=== PATIENT | male | born 1940 | race Caucasian/White ===

== ENCOUNTER 2021-12-24 15:46 | Observation (INO) | payer OTHER ==
--- OUTSIDE RECORDS SUMMARY | 2021-12-24 15:57 | XMS REPORT | Continuity of Care Document ---
:1940 Author Organization [facility] t Address [address] [place] [address] Care Team Providers Name Role Phone Rocio PANTOJA, Jerzy. Primary Care Physician Clint Attending Clinician Unavailable Annette Attending Clinician [phone] KJ Attending Clinician Unavailable LILY Attending Clinician Unavailable Donnie Attending Clinician Unavailable Jono ORTIZ Attending Clinician Unavailable Brad PANTOJA, T. Attending Clinician Gaurav PANTOJA Attending Clinician Jason Tomlinson Attending Clinician Napoleon PANTOJA Attending Clinician Elizabeth Quezada MD Attending Clinician Sheldon Palomo MD Attending Clinician Lennie Smith MD Attending Clinician Clint Admitting Clinician Unavailable Donnie Admitting Clinician Unavailable GAURAV Admitting Clinician Unavailable Payers Payer Name Policy Type Policy Number Effective Date Expiration Date [facility] [id number] (MEDICARE REPLACEMENT/ADVAN TAGE - PPO) [employer] [id number] 2016 ADVANTAGE 00:00:00 PLAN-PPO [facility] [id number] 2016 2017 ADVANTAGE 00:00:00 00:00:00 HMO-POS-[facility] MEDICARE PART A [id number] 2014 2017 \T\ B - MEDICARE 00:00:00 00:00:00 UHC MEDICAREUHC [id number] 2020 [employer] MEDICARE 00:00:00 [facility] [id number] 021-[id number] Problems Condition Condition Condition Status Onset Resolution Last Treating Co mments Source Name Details Category Date Date Treatment Clinician Date Rectal Rectal Disease Active [facility] bleeding bleeding 11-14 00:00: Hospita 00 l Posterior Posterior Disease Active [place] [facility] vitreous vitreous 1-15 [facility] detachment detachment 00:00: of of left of left 00 Medicin eye eye e History of History of Disease Active [facility] vitrectomy vitrectomy 03-25 Co llege 00:00: of 00 Medicin e Eyelid Eyelid Disease Active [facility] cyst cyst 6 College 00:00: of 00 Medicin e Eyelid Eyelid Disease Active [facility] skin and skin and 03-25 Colleg e periocular periocular 00:00: of area area 00 Medicin laceration laceration e Pseudophak Pseudophak Disease Active [facility] ia 6 College 00:00: of 00 Medicin e Eyelid Eyelid Disease Active [facility] laceration laceration 03-17 Co llege , right , right 00:00: of 00 Medicin e Vitreous Vitreous Disease Active [facility] syneresis syneresis 02-12 Chloe ege 00:00: of 00 Medicin e Back pain Back pain Disease Active [place] j[facility] 18 College 00:00: of 00 Medicin e Diverticul Diverticul Disease Active [facility] itis itis 18 College 00:00: of 00 Medicin e Gastric Gastric Disease Active Overview: [facility] or bleed bleed 01-30 Colon College 00:00: resection of 00 Medicin e Skin Skin Disease Active Overview: [facility] 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 em[facility] emia 01-30 Level [place] 00:00: of 00 Medicin e Sleep Sleep Disease Active [facility] behavior behavior 01-30 Colleg e disorder, disorder, 00:00: of REM REM 00 Medicin e HTN HTN Disease Active [facility] (hypertens (hypertens 01-30 Co llege ion) ion) 00:00: of 00 Medicin e Eyelid Eyelid Disease Active [facility] lesion lesion 01-29 Level Green 00:00: of 00 Medicin e Allergies, Adverse Reactions, Alerts Allergy Allergy Status Severity Reaction(s) Onset Inactive Treating Comm ents Source Name Type Date Date Clinician Iodinate Propensi Active Other (See Pt gets M ethodi d ty to Comments) 11-14 hot, st Contrast adverse 00:00: flushed. Hospi ta Media reaction 00 Has had l s to previous drug contrast studies without premedica tions. Not considere d a true contrast allergy Niacin Propensi Active Unknown Does not Metho di ty to Reaction 11-[address] adverse 00:00: Hospita reaction 00 l s to drug Amlodipi Propensi Active Unknown Does not Met hodi ne ty to Reaction 11-[address] adverse 00:00: Hospita reaction 00 l s to drug Penicill Propensi Active Unknown Itching,h Me thodi ins ty to Reaction 11-[address] adverse 00:00: over Hospita reaction 00 l s to drug Trandola Propensi Active Unknown Heart Metho di pril-Lindsey ty to Reaction 11-[address] apamil adverse 00:00: faster Hospita reaction 00 l s to drug Metoprol Propensi Active Unknown Heart Metho di ol ty to Reaction 11-[address] Succinat adverse 00:00: faster Hospita e reaction 00 l s to drug Metoprol Propensi Active Rash [facility] reaction 00 Center s Morphine Propensi Active Hives 2016-[address] [facility] ty to 10-21 [facility] - adverse 00:00: Medical reaction 00 Center s Esomepra Propensi Active 2016-[address] [facility] zole ty to 10-21 [facility] Magnesiu adverse 00:00: Medical m reaction 00 Center s Niacin Propensi Active 2016-[address] [facility] [address] Preparat ty to 10-21 [facility] - ions adverse 00:00: Medical reaction 00 Center s Amlodipi Propensi Active 2016-[address] [facility] ne ty to 10-21 [facility] - adverse 00:00: Medical reaction 00 Center s Oxybutyn Propensi Active 2016-[address] [facility] in ty to 10-21 [facility] - adverse 00:00: Medical reaction 00 Center s Amiodaro Propensi Active 2016-[address] [facility] [address] ne ty to 10-21 [facility] - adverse 00:00: Medical reaction 00 Center s Penicill Propensi Active Rash 2016-[address] [facility] ins ty to 10-21 [facility] - adverse 00:00: Medical reaction 00 Center s Nisoldip Propensi Active 2016-[address] ine ty to 10-21 [facility] - adverse 00:00: Medical reaction 00 Center s Sulfa Propensi Active 2016-[address] [facility] (Sulfona ty to 10-21 [facility] - mide adverse 00:00: Medical Antibiot reaction 00 Center ics) s Trandola Propensi Active 2016-[address] [facility] pril-Lindsey ty to 10-21 [facility] - apamil adverse 00:00: Medical reaction 00 Center s Terbinaf Propensi Active 2016-[address] [facility] ine ty to 10-21 [facility] - adverse 00:00: Medical reaction 00 Center s Topirama Propensi Active 2016-[address] [facility] te ty to 10-21 [facility] - adverse 00:00: Medical reaction 00 Center s Rosuvast Propensi Active 2016-[address] [facility] [address] atin ty to 10-21 [facility] - adverse 00:00: Medical reaction 00 Center s Dexlanso Propensi Active 2016-[address] [facility] prazole ty to 10-21 [facility] - adverse 00:00: Medical reaction 00 Center s Valsarta Propensi Active 2016-[address] [facility] [address] n ty to 10-21 [facility] - adverse 00:00: Medical reaction 00 Center s Isosorbi Propensi Active 2016-[address] [facility] [address] de ty to 10-21 [facility] Mononitr adverse 00:00: Medical ate reaction 00 Center s Iodinate Propensi Active Anaphylaxis 2016-[address] d ty to 10-21 [facility] - Contrast adverse 00:00: Medical Media reaction 00 Center s Atorvast Propensi Active 2016-[address] [facility] atin ty to 10-21 [facility] - adverse 00:00: Medical reaction 00 Center s Lisinopr Propensi Active 2016-[address] il ty to 10-21 [facility] - adverse 00:00: Medical reaction 00 Center s Niacin Propensi Active 2016-10 [facility] And ty to 10-21 Level [place] Related adverse 00:00: of reaction 00 Medicin s to e drug Nisoldip Propensi Active 2016-10 [facility] ine ty to 10-21 Level [place] adverse 00:00: of reaction 00 Medicin s to e drug Oxybutyn Propensi Active 2016-10 [facility] in ty to 10-21 Level [place] Chloride adverse 00:00: of reaction 00 Medicin s to e drug Rosuvast Propensi Active 2016-10 [facility] atin ty to 10-21 Level [place] adverse 00:00: of reaction 00 Medicin s to e drug Sulfa Propensi Active 2016-10 [facility] Antibiot ty to 10-21 Level Green ics adverse 00:00: of reaction 00 Medicin s to e drug Terbinaf Propensi Active 2016-10 [facility] ine ty to 10-21 Level [place] adverse 00:00: of reaction 00 Medicin s to e drug Amiodaro Propensi Active 2016-10 [facility] ne ty to 10-21 Level Green adverse 00:00: of reaction 00 Medicin s to e drug Topirama Propensi Active 2016-10 [facility] te ty to 10-21 Level [place] adverse 00:00: of reaction 00 Medicin s to e drug Trandola Propensi Active 2016-10 [facility] pril-Lindsey ty to 10-21 Level [place] apamil adverse 00:00: of Hcl reaction 00 Medicin s to e drug Valsarta Propensi Active 2016-10 [facility] n ty to 10-21 Level [place] adverse 00:00: of reaction 00 Medicin s to e drug Atorvast Propensi Active 2016-10 [facility] atin ty to 10-21 Level [place] adverse 00:00: of reaction 00 Medicin s to e drug Dexlanso Propensi Active 2016-10 [facility] prazole ty to 10-21 College adverse 00:00: of reaction 00 Medicin s to e drug Esomepra Propensi Active 2016-10 [facility] zole ty to 10-21 Level [place] Magnesiu adverse 00:00: of m reaction 00 Medicin s to e drug Lisinopr Propensi Active 2016-10 [facility] il ty to 10-21 Level [place] adverse 00:00: of reaction 00 Medicin s to e drug Moxiflox Propensi Active Palpitations [facility] ty to 05-31 [facility] - adverse 00:00: Medical reaction 00 Center s Moxiflox Propensi Active Palpitations [facility] acin Hcl ty to 05-31 Level [place] In Nacl adverse 00:00: of reaction 00 Medicin s to e drug Amlodipi Propensi Active [facility] ty to 01-29 [facility] - Besylate adverse 00:00: Medical reaction 00 Center s Morphine Propensi Active [facility] Sulfate ty to 01-29 Level [place] adverse 00:00: of reaction Medicin s to e drug Amlodipi Propensi Active [facility] ne ty to 01-29 Level [place] Besylate adverse 00:00: of reaction 00 Medicin s to e drug Pacerone Propensi Active [facility] ty to [address] [place] [address] adverse 00:00: of reaction 00 Medicin s to e drug Penicill Propensi Active [facility] ins ty to 01-29 Level [place] adverse 00:00: of reaction 00 Medicin s to e drug I.V. Dye Propensi Active [facility] ty to [address] [place] [address] adverse 00:00: of reaction 00 Medicin s to e substanc e Isosorbi Propensi Active [facility] de ty to 01-29 Level [place] Mononitr adverse 00:00: of ate reaction 00 Medicin s to e drug Family History Family Member Diagnosis Comments Start Date Stop Date Source Natural brother [facility] Natural father Heart disease [facility] mother [facility] sister [facility] Social History Social Habit Start Date Stop Date Quantity Comments Source Alcohol intake [facility] [employer] Sex Assigned At [facility] [employer] [facility] [employer] Exposure to Not sure [facility] SARS-CoV-2 (event) Hospit al Cigarettes smoked 2020-11-18 2020-11-18 [facility] current (pack per 00:00:00 00:00:00 Hospita l day) - Reported Cigarette 2020-11-18 2020-11-18 [facility] pack-years 00:00:00 00:00:00 Hospital History SDOH 2020-11-15 2020-11-15 3 [facility] Alcohol Frequency 00:00:00 00:00:00 Hospita l History SDOH 2020-11-15 2020-11-15 1 [facility] Alcohol Std Drinks 00:00:00 00:00:00 Hospit al History SDOH 2020-11-15 2020-11-15 1 [facility] Alcohol Binge 00:00:00 00:00:00 Hospital Alcohol Comment 2020-11-14 2020-11-14 20 years [facility] 00:00:00 00:00:00 Hospital Tobacco use and 2018-04-05 2018-04-[address] [facility] k[facility] - exposure 00:00:00 00:00:00 [facility] Center History of tobacco 1980-10-15 Current smoker [facility] of use 00:00:00 Medicine Smoking Status Start Date Stop Date Source Former smoker 2019-08-08 00:00:00 2019-08-08 00:00:00 [facility] Medications Ordered Filled Start Stop Current Ordering Indication Dosage Frequency Signature Comments Components Source Medication Medication Date Date Medication? Clinician (SIG) Name Name ISOSORBIDE No 60mg QD Take 60 mg [facility] MONONITRATE 11-[address] ORAL 15:55: 00:00 nightly. Hospita 12 :00 l clopidogreL No 75mg QD Take 75 mg [facility] (PLAVIX) 75 11-19-[address] mg tablet 15:55: 00:00 daily. Hospi ta 12 :00 l omega-3s/dh 2020- No 2{capsu QD Take 2 [facility] a/epa/fish 2-11-19 le} capsules st oil (OMEGA 15:55: 00:00 by mouth Ho spita 3 ORAL) 12 :00 daily. l MAGNESIUM 2020- No 500mg QD Take 500 Me thodi ORAL 2-[address] 15:55: 00:00 mouth Hospita 12 :00 daily. l coenzyme 2020- No 100mg QD Take 100 Met hodi Q10 100 mg 2-05 02-[address] capsule 15:55: 00:00 mouth Hospita 12 :00 nightly. l clonAZEPAM 2020-0 Yes .5mg QD Take 0.5 Met hodi (KlonoPIN) 2-[address] 0.5 MG 15:55: mouth Hospita tablet 09 nightly. l ISOSORBIDE 2020-0 Yes 30mg QD Take 30 mg M ethodi MONONITRATE 2-[address] ORAL 15:55: daily. Hospita 09 l ranolazine 2020-0 Yes 500mg Q.5D Take 500 Me thodi (RANEXA) 2-[address] 500 MG 12 15:55: mouth 2 Hospi ta hr ER 09 (two) l tablet times a day. furosemide 2020-0 Yes 40mg Q.[id number] Take 40 mg [facility] (LASIX) 40 2-05 [id number] mouth [address] mg tablet 15:55: 3W (three) Hospi ta 09 times a l week. Mon, Wed, Fri fenofibrate 2020-0 Yes 145mg QD Take 145 M ethodi (TRICOR) 2-[address] 145 MG 15:55: mouth Hospita tablet 09 daily. l therapeutic 2020-0 Yes 1{tbl} QD Take 1 Me thodi multivitami 2-[address] n 15:55: mouth Hospita (THERAGRAN) 09 daily. l tablet cholecalcif 2020-0 Yes QD Take by Met hodi stacia, 2-[address] vitamin D3, 15:55: daily. Hosp braden (VITAMIN D3 09 l ORAL) ZINC ORAL 2020-0 Yes 50mg QD Take 50 mg Me thodi 2-[address] 15:55: daily. Hospita 09 l pantoprazol 2020-0 Yes 40mg QD Take 40 mg Methodi e 2-[address] (PROTONIX) 15:55: nightly. Hos farhat 40 MG EC 09 l tablet tamsulosin 2020-0 Yes .4mg QD Take 0.4 Met hodi (FLOMAX) 2-[address] 0.4 mg 15:55: mouth Hospita capsule 09 nightly. l finasteride 2020-0 Yes 5mg QD Take 5 mg M ethodi (PROSCAR) 5 2-[address] mg tablet 15:55: nightly. Hosp braden 09 l sucralfate 2020- No 1g Q.25D Take 10 mL [facility] (CARAFATE) 205 03-08 ([address] 100 mg/mL 00:00: 05:59 total) by Ho spita suspension 00 :00 mouth 4 l (four) times a day before meals and nightly for 30 days. elvitegravi 2020- No 1{tbl} QD Take 1 M ethodi r-cobicista 211-[address] t-emtricita 02:19: 00:00 mouth Hosp braden bine-tenofo 41 :00 daily. l vir DF (STRIBILD) 150-150-200 -300 mg per tablet furosemide Yes 40mg Q.5D Take [address] (LASIX) 40 6-22 by mouth 2 Charanjit es - MG tablet 12:38: (two) Medical 30 times Center daily. clopidogrel Yes 75mg QD Take [address] [facility] (PLAVIX) 75 6-22 by mouth Luke s - mg tablet 12:38: daily. Medica l 30 Center RANOLAZINE Yes Take by [facility] (RANEXA 6-22 mouth. [facility] - ORAL) 12:38: Medical 30 Center clonazePAM Yes .5mg Take 0.[address] [facility] (KLONOPIN) 6-22 mg by [facility] - 0.5 MG 12:38: mouth 2 Medical tablet 30 (two) Center times daily as needed for Anxiety. coenzyme 2017-0 Yes 100mg QD Take [address] [facility] Q10 100 mg 6-22 mg by [facility] - capsule 12:38: mouth Medical 30 daily. Center isosorbide 0 Yes 60mg QD Take [address] mononitrate 6-22 by mouth Luke s - (IMDUR) 60 12:38: daily. Medic al MG 24 hr 30 Center tablet ramipril 0 Yes 10mg QD Take [address] [facility] (ALTACE) 10 6-22 by mouth Luke s - MG capsule 12:38: daily. Medic al 30 Center pantoprazol 0 Yes 40mg QD Take [address] [facility] e 6-22 by mouth [facility] - (PROTONIX) 12:38: daily. Medic al 40 MG 30 Center tablet triamcinolo 0 Yes Q.[id number] Apply [facility] ne 04-05 [id number] topically Luke s - (KENALOG) 12:38: 3D 3 (three) Med ical 0.5 % cream 30 times Center daily. diflupredna Yes Apply to [facility] te -22 eye(s). [facility] - (DUREZOL) 12:38: Medical 0.05 % Drop 30 Center bromfenac Yes Apply to [facility] (PROLENSA) -22 eye(s). [facility] - 0.07 % Drop 12:38: Medica l 30 Center polymyxin B Yes 1[drp] [address] sulf-trimet 04-05 [facility] - hoprim 12:38: Medical (POLYTRIM) 30 Center 10,000 unit- 1 mg/mL Drop nitroglycer Yes 1{spray Place [address] [facility] in 04-05 } spray [facility] - (NITROLINGU 12:38: under the M edical AL) 400 30 tongue Center mcg/spray every 5 spray (five) minutes as needed for Chest pain. multivit-mi Yes Take by [facility] n-FA-lycope 04-05 mouth. [facility] - n-lutein 12:38: Medical (CENTRUM 30 Center SILVER) 0.4-300-250 mg-mcg-mcg Tab zinc 0 Yes 50mg QD Take [address] gluconate 04-05 by mouth [facility] - 50 mg 12:38: daily. Medical tablet 30 Center fenofibrate 0 Yes 145mg QD Take [address] (TRICOR) 6-22 mg by [facility] - 145 MG 12:38: mouth Medical tablet 30 daily. Center omega-3 2018-0 Yes 2g Q.5D Take [address] [facility] acid ethyl - by mouth 2 Charanjit es - esters 12:38: (two) Medical (LOVAZA) 1 30 times Center gram daily. capsule furosemide 2017-0 Yes 40mg Q.5D Take [address] (LASIX) 40 -22 by mouth 2 Charanjit es - MG tablet 12:38: (two) Medical 30 times Center daily. clopidogrel 2018-0 Yes 75mg QD Take [address] (PLAVIX) 75 - by mouth Luke s - mg tablet 12:38: daily. Medica l 30 Center RANOLAZINE 0 Yes Take by [facility] (RANEXA - mouth. [facility] - ORAL) 12:38: Medical 30 Center clonazePAM 2017-0 Yes .5mg Take 0.[address] (KLONOPIN) 6-22 mg by [facility] - 0.5 MG 12:38: mouth 2 Medical tablet 30 (two) Center times daily as needed for Anxiety. coenzyme 2018-0 Yes 100mg QD Take [address] [facility] Q10 100 mg 6-22 mg by [facility] - capsule 12:38: mouth Medical 30 daily. Center isosorbide 0 Yes 60mg QD Take [address] mononitrate - by mouth Luke s - (IMDUR) 60 12:38: daily. Medic al MG 24 hr 30 Center tablet ramipril Yes 10mg QD Take [address] (ALTACE) 10 04-05 by mouth Luke s - MG capsule 12:38: daily. Medic al 30 Center pantoprazol 0 Yes 40mg QD Take [address] [facility] e - by mouth [facility] - (PROTONIX) 12:38: daily. Medic al 40 MG 30 Center tablet triamcinolo 0 Yes Q.[id number] Apply [facility] ne 04-05 [id number] topically Luke [facility] - (KENALOG) 12:38: 3D 3 (three) Med ical 0.5 % cream 30 times Center daily. diflupredna Yes Apply to [facility] te 04-05 eye(s). [facility] - (DUREZOL) 12:38: Medical 0.05 % Drop 30 Center bromfenac 0 Yes Apply to [facility] (PROLENSA) - eye(s). [facility] - 0.07 % Drop 12:38: Medica l 30 Center polymyxin B 0 Yes 1[drp] [address] sulf-trimet 04-05 [facility] - hoprim 12:38: Medical (POLYTRIM) 30 Center 10,000 unit- 1 mg/mL Drop nitroglycer 0 Yes 1{spray Place [address] [facility] in 6-22 } spray [facility] - (NITROLINGU 12:38: under the M edical AL) 400 30 tongue Center mcg/spray every 5 spray (five) minutes as needed for Chest pain. multivit-mi 2017-0 Yes Take by [facility] n-FA-lycope 6-22 mouth. [facility] - n-lutein 12:38: Medical (CENTRUM 30 Center SILVER) 0.4-300-250 mg-mcg-mcg Tab zinc 2018-0 Yes 50mg QD Take [address] gluconate 6-22 by mouth [facility] - 50 mg 12:38: daily. Medical tablet 30 Center fenofibrate 2017-0 Yes 145mg QD Take [address] (TRICOR) 6-22 mg by [facility] - 145 MG 12:38: mouth Medical tablet 30 daily. Center omega-3 2017-0 Yes 2g Q.5D Take [address] acid ethyl 6-22 by mouth 2 Charanjit es - esters 12:38: (two) Medical (LOVAZA) 1 30 times Center gram daily. capsule furosemide 0 Yes 40mg Q.5D Take [address] (LASIX) 40 6-22 by mouth 2 Charanjit es - MG tablet 12:38: (two) Medical 30 times Center daily. clopidogrel 2017-0 Yes 75mg QD Take [address] [facility] (PLAVIX) 75 6-22 by mouth Luke s - mg tablet 12:38: daily. Medica l 30 Center RANOLAZINE 0 Yes Take by [facility] (RANEXA 6-22 mouth. [facility] - ORAL) 12:38: Medical 30 Center clonazePAM 2017-0 Yes .5mg Take 0.[address] (KLONOPIN) 6-22 mg by [facility] - 0.5 MG 12:38: mouth 2 Medical tablet 30 (two) Center times daily as needed for Anxiety. coenzyme 2018-0 Yes 100mg QD Take [address] Q10 100 mg 6-22 mg by [facility] - capsule 12:38: mouth Medical 30 daily. Center isosorbide 2017-0 Yes 60mg QD Take [address] mononitrate 6-22 by mouth Luke s - (IMDUR) 60 12:38: daily. Medic al MG 24 hr 30 Center tablet ramipril 2017-0 Yes 10mg QD Take [address] [facility] (ALTACE) 10 6-22 by mouth Luke s - MG capsule 12:38: daily. Medic al 30 Center pantoprazol Yes 40mg QD Take [address] [facility] e -22 by mouth [facility] - (PROTONIX) 12:38: daily. Medic al 40 MG 30 Center tablet triamcinolo 0 Yes Q.[id number] Apply [facility] ne 04-05 [id number] topically [facility] - (KENALOG) 12:38: 3D 3 (three) Med ical 0.5 % cream 30 times Center daily. diflupredna Yes Apply to [facility] te 04-05 eye(s). [facility] - (DUREZOL) 12:38: Medical 0.05 % Drop 30 Center bromfenac Yes Apply to [facility] (PROLENSA) -22 eye(s). [facility] - 0.07 % Drop 12:38: Medica l 30 Center polymyxin B Yes 1[drp] [address] sulf-trimet 04-05 [facility] - hoprim 12:38: Medical (POLYTRIM) 30 Center 10,000 unit- 1 mg/mL Drop nitroglycer Yes 1{spray Place [address] [facility] in 04-05 } spray kes - (NITROLINGU 12:38: under the M edical AL) 400 30 tongue Center mcg/spray every 5 spray (five) minutes as needed for Chest pain. multivit-mi Yes Take by [facility] n-FA-lycope 04-05 mouth. [facility] - n-lutein 12:38: Medical (CENTRUM 30 Center SILVER) 0.4-300-250 mg-mcg-mcg Tab zinc Yes 50mg QD Take [address] gluconate - by mouth [facility] - 50 mg 12:38: daily. Medical tablet 30 Center fenofibrate 0 Yes 145mg QD Take [address] (TRICOR) 6-22 mg by [facility] - 145 MG 12:38: mouth Medical tablet 30 daily. Center omega-3 0 Yes 2g Q.5D Take [address] acid ethyl - by mouth 2 Charanjit es - esters 12:38: (two) Medical (LOVAZA) 1 30 times Center gram daily. capsule furosemide Yes 40mg Q.5D Take [address] (LASIX) 40 6-22 by mouth 2 Charanjit es - MG tablet 12:38: (two) Medical 30 times Center daily. clopidogrel 2018-0 Yes 75mg QD Take [address] [facility] (PLAVIX) 75 6-22 by mouth Luke s - mg tablet 12:38: daily. Medica l 30 Center RANOLAZINE 0 Yes Take by [facility] (RANEXA 6-22 mouth. [facility] - ORAL) 12:38: Medical 30 Center clonazePAM 2018-0 Yes .5mg Take 0.[address] (KLONOPIN) 6-22 mg by [facility] - 0.5 MG 12:38: mouth 2 Medical tablet 30 (two) Center times daily as needed for Anxiety. coenzyme 2018-0 Yes 100mg QD Take [address] Q10 100 mg 6-22 mg by [facility] - capsule 12:38: mouth Medical 30 daily. Center isosorbide 0 Yes 60mg QD Take [address] mononitrate 6-22 by mouth Luke s - (IMDUR) 60 12:38: daily. Medic al MG 24 hr 30 Center tablet ramipril 0 Yes 10mg QD Take [address] [facility] (ALTACE) 10 6-22 by mouth Luke s - MG capsule 12:38: daily. Medic al 30 Center pantoprazol 0 Yes 40mg QD Take [address] [facility] [facility] e 6-22 by mouth [facility] - (PROTONIX) 12:38: daily. Medic al 40 MG 30 Center tablet triamcinolo 0 Yes Q.[id number] Apply [facility] ne 6-22 [id number] topically [facility] - (KENALOG) 12:38: 3D 3 (three) Med ical 0.5 % cream 30 times Center daily. diflupredna 0 Yes Apply to [facility] te 6-22 eye(s). [facility] - (DUREZOL) 12:38: Medical 0.05 % Drop 30 Center bromfenac 0 Yes Apply to [facility] (PROLENSA) 6-22 eye(s). [facility] - 0.07 % Drop 12:38: Medica l 30 Center polymyxin B 0 Yes 1[drp] [address] sulf-trimet 6-22 [facility] - hoprim 12:38: Medical (POLYTRIM) 30 Center 10,000 unit- 1 mg/mL Drop nitroglycer 2018-0 Yes 1{spray Place [address] [facility] in 6- } spray [facility] - (NITROLINGU 12:38: under the M edóscar AL) 400 30 tongue Center mcg/spray every 5 spray (five) minutes as needed for Chest pain. multivit-mi 0 Yes Take by [facility] n-FA-lycope 6-22 mouth. [facility] - n-lutein 12:38: Medical (CENTRUM 30 Center SILVER) 0.4-300-250 mg-mcg-mcg Tab zinc 2018-0 Yes 50mg QD Take [address] gluconate 6-22 by mouth [facility] - 50 mg 12:38: daily. Medical tablet 30 Center fenofibrate 0 Yes 145mg QD Take [address] (TRICOR) 6-22 mg by [facility] - 145 MG 12:38: mouth Medical tablet 30 daily. Center omega-3 0 Yes 2g Q.5D Take [address] acid ethyl 6-22 by mouth 2 Charanjit es - esters 12:38: (two) Medical (LOVAZA) 1 30 times Center gram daily. capsule furosemide 0 Yes 40mg Q.5D Take [address] (LASIX) 40 6-22 by mouth 2 Charanjit es - MG tablet 12:38: (two) Medical 30 times Center daily. clopidogrel 0 Yes 75mg QD Take [address] [facility] (PLAVIX) 75 6-22 by mouth Luke s - mg tablet 12:38: daily. Medica l 30 Center RANOLAZINE 0 Yes Take by [facility] (RANEXA 6-22 mouth. [facility] - ORAL) 12:38: Medical 30 Center clonazePAM 2018-0 Yes .5mg Take 0.[address] (KLONOPIN) 6-22 mg by [facility] - 0.5 MG 12:38: mouth 2 Medical tablet 30 (two) Center times daily as needed for Anxiety. coenzyme 2018-0 Yes 100mg QD Take [address] Q10 100 mg 6-22 mg by [facility] - capsule 12:38: mouth Medical 30 daily. Center isosorbide 2017-0 Yes 60mg QD Take [address] mononitrate 6-22 by mouth Luke s - (IMDUR) 60 12:38: daily. Medic al MG 24 hr 30 Center tablet ramipril Yes 10mg QD Take [address] [facility] (ALTACE) 10 04-05 by mouth Luke s - MG capsule 12:38: daily. Medic al 30 Center pantoprazol 0 Yes 40mg QD Take [address] [facility] e -22 by mouth [facility] - (PROTONIX) 12:38: daily. Medic al 40 MG 30 Center tablet triamcinolo 0 Yes Q.[id number] Apply [facility] 04-05 [id number] topically [facility] - (KENALOG) 12:38: 3D 3 (three) Med ical 0.5 % cream 30 times Center daily. diflupredna Yes Apply to [facility] 04-05 eye(s). [facility] - (DUREZOL) 12:38: Medical 0.05 % Drop 30 Center bromfenac Yes Apply to [facility] (PROLENSA) 04-05 eye(s). [facility] - 0.07 % Drop 12:38: Medica l 30 Center polymyxin B Yes 1[drp] [address] sulf-trimet 04-05 [facility] - hoprim 12:38: Medical (POLYTRIM) 30 Center 10,000 unit- 1 mg/mL Drop nitroglycer Yes 1{spray Place [address] [facility] in 04-05 } spray [facility] - (NITROLINGU 12:38: under the M karel AL) 400 30 tongue Center mcg/spray every 5 spray (five) minutes as needed for Chest pain. multivit-mi Yes Take by [facility] n-FA-lycope 04-05 mouth. [facility] - n-lutein 12:38: Medical (CENTRUM 30 Center SILVER) 0.4-300-250 mg-mcg-mcg Tab zinc 0 Yes 50mg QD Take [address] [facility] gluconate - by mouth [facility] - 50 mg 12:38: daily. Medical tablet 30 Center fenofibrate 0 Yes 145mg QD Take [address] (TRICOR) 6-22 mg by [facility] - 145 MG 12:38: mouth Medical tablet 30 daily. Center omega-3 Yes 2g Q.5D Take [address] [facility] acid ethyl 04-05 by mouth 2 Charanjit es - esters 12:38: (two) Medical (LOVAZA) 1 30 times Center gram daily. capsule furosemide 2018-0 Yes 40mg Q.5D Take [address] (LASIX) 40 6-22 by mouth 2 Charanjit es - MG tablet 12:38: (two) Medical 30 times Center daily. clopidogrel 2018-0 Yes 75mg QD Take [address] [facility] (PLAVIX) 75 6-22 by mouth [facility] - mg tablet 12:38: daily. Medica l 30 Center RANOLAZINE 0 Yes Take by [facility] (RANEXA 6-22 mouth. [facility] - ORAL) 12:38: Medical 30 Center clonazePAM 2018-0 Yes .5mg Take 0.[address] [facility] (KLONOPIN) 6-22 mg by [facility] - 0.5 MG 12:38: mouth 2 Medical tablet 30 (two) Center times daily as needed for Anxiety. coenzyme 2018-0 Yes 100mg QD Take [address] [facility] Q10 100 mg 6-22 mg by [facility] - capsule 12:38: mouth Medical 30 daily. Center isosorbide 0 Yes 60mg QD Take [address] mononitrate 6-22 by mouth [facility] - (IMDUR) 60 12:38: daily. Medic al MG 24 hr 30 Center tablet ramipril 0 Yes 10mg QD Take [address] [facility] (ALTACE) 10 6-22 by mouth [facility] - MG capsule 12:38: daily. Medic al 30 Center pantoprazol 0 Yes 40mg QD Take [address] [facility] e 6-22 by mouth [facility] - (PROTONIX) 12:38: daily. Medic al 40 MG 30 Center tablet triamcinolo 2017-0 Yes Q.[id number] Apply [facility] ne 6-22 [id number] topically [facility] - (KENALOG) 12:38: 3D 3 (three) Med ical 0.5 % cream 30 times Center daily. diflupredna 0 Yes Apply to [facility] 6-22 eye(s). [facility] (DUREZOL) 12:38: Medical 0.05 % Drop 30 Center bromfenac 0 Yes Apply to [facility] (PROLENSA) 6-22 eye(s). [facility] - 0.07 % Drop 12:38: Medica l 30 Center polymyxin B 2018-0 Yes 1[drp] [address] sulf-trimet 04-05 [facility] - hoprim 12:38: Medical (POLYTRIM) 30 Center 10,000 unit- 1 mg/mL Drop nitroglycer 2017-0 Yes 1{spray Place [address] [facility] in 04-05 } spray [facility] - (NITROLINGU 12:38: under the M edical AL) 400 30 tongue Center mcg/spray every 5 spray (five) minutes as needed for Chest pain. multivit-mi 0 Yes Take by [facility] n-FA-lycope - mouth. [facility] - n-lutein 12:38: Medical (CENTRUM 30 Center SILVER) 0.4-300-250 mg-mcg-mcg Tab zinc 0 Yes 50mg QD Take [address] [facility] gluconate 6-22 by mouth [facility] - 50 mg 12:38: daily. Medical tablet 30 Center fenofibrate 0 Yes 145mg QD Take [address] (TRICOR) 6-22 mg by [facility] - 145 MG 12:38: mouth Medical tablet 30 daily. Center omega-3 0 Yes 2g Q.5D Take [address] [facility] acid ethyl -22 by mouth 2 Charanjit es - esters 12:38: (two) Medical (LOVAZA) 1 30 times Center gram daily. capsule furosemide 0 Yes 40mg Q.5D Take [address] (LASIX) 40 6-22 by mouth 2 Charanjit es - MG tablet 12:38: (two) Medical 30 times Center daily. clopidogrel 0 Yes 75mg QD Take [address] [facility] (PLAVIX) 75 6-22 by mouth [facility] - mg tablet 12:38: daily. Medica l 30 Center RANOLAZINE 0 Yes Take by [facility] (RANEXA 6-22 mouth. [facility] - ORAL) 12:38: Medical 30 Center clonazePAM 2017-0 Yes .5mg Take 0.[address] [address] (KLONOPIN) 6-22 mg by [facility] - 0.5 MG 12:38: mouth 2 Medical tablet 30 (two) Center times daily as needed for Anxiety. coenzyme 2017-0 Yes 100mg QD Take [address] Q10 100 mg 6-22 mg by [facility] - capsule 12:38: mouth Medical 30 daily. Center isosorbide 2018-0 Yes 60mg QD Take [address] mononitrate 04-05 by mouth [facility] - (IMDUR) 60 12:38: daily. Medic al MG 24 hr 30 Center tablet ramipril Yes 10mg QD Take [address] [facility] (ALTACE) 10 04-05 by mouth [facility] - MG capsule 12:38: daily. Medic al 30 Center pantoprazol 2018 Yes 40mg QD Take [address] [facility] e 04-05 by mouth [facility] - (PROTONIX) 12:38: daily. Medic al 40 MG 30 Center tablet triamcinolo 2018 Yes Q.[id number] Apply [facility] ne 04-05 [id number] topically [facility] - (KENALOG) 12:38: 3D 3 (three) Med ical 0.5 % cream 30 times Center daily. diflupredna Yes Apply to [facility] - eye(s). [facility] - (DUREZOL) 12:38: Medical 0.05 % Drop 30 Center bromfenac Yes Apply to [facility] (PROLENSA) 04-05 eye(s). [facility] - 0.07 % Drop 12:38: Medica l 30 Center polymyxin B Yes 1[drp] [address] sulf-trimet 04-05 [facility] - hoprim 12:38: Medical (POLYTRIM) 30 Center 10,000 unit- 1 mg/mL Drop nitroglycer Yes 1{spray Place [address] [facility] in 04-05 } spray [facility] - (NITROLINGU 12:38: under the M edical AL) 400 30 tongue Center mcg/spray every 5 spray (five) minutes as needed for Chest pain. multivit-mi Yes Take by [facility] n-FA-lycope 04-05 mouth. [facility] - n-lutein 12:38: Medical (CENTRUM 30 Center SILVER) 0.4-300-250 mg-mcg-mcg Tab zinc 0 Yes 50mg QD Take [address] [facility] gluconate 22 by mouth [facility] - 50 mg 12:38: daily. Medical tablet 30 Center fenofibrate 0 Yes 145mg QD Take [address] (TRICOR) -22 mg by [facility] - 145 MG 12:38: mouth Medical tablet 30 daily. Center omega-3 2018-0 Yes 2g Q.5D Take [address] [facility] acid ethyl 6-22 by mouth 2 Charanjit es - esters 12:38: (two) Medical (LOVAZA) 1 30 times Center gram daily. capsule furosemide 2018-0 Yes 40mg Q.5D Take [address] (LASIX) 40 6-22 by mouth 2 Charanjit es - MG tablet 12:38: (two) Medical 30 times Center daily. clopidogrel 2018-0 Yes 75mg QD Take [address] [facility] (PLAVIX) 75 6-22 by mouth [facility] - mg tablet 12:38: daily. Medica l 30 Center RANOLAZINE 0 Yes Take by [facility] (RANEXA 6-22 mouth. [facility] - ORAL) 12:38: Medical 30 Center clonazePAM 2018-0 Yes .5mg Take 0.[address] [address] (KLONOPIN) 6-22 mg by [facility] - 0.5 MG 12:38: mouth 2 Medical tablet 30 (two) Center times daily as needed for Anxiety. coenzyme 2018-0 Yes 100mg QD Take [address] [address] Q10 100 mg 6-22 mg by [facility] - capsule 12:38: mouth Medical 30 daily. Center isosorbide 2017-0 Yes 60mg QD Take [address] mononitrate 6-22 by mouth [facility] - (IMDUR) 60 12:38: daily. Medic al MG 24 hr 30 Center tablet ramipril 0 Yes 10mg QD Take [address] [facility] (ALTACE) 10 6-22 by mouth [facility] - MG capsule 12:38: daily. Medic al 30 Center pantoprazol 2017-0 Yes 40mg QD Take [address] [facility] e 6-22 by mouth [facility] - (PROTONIX) 12:38: daily. Medic al 40 MG 30 Center tablet triamcinolo 2018-0 Yes Q.[id number] Apply [facility] ne 6-22 [id number] topically [facility] - (KENALOG) 12:38: 3D 3 (three) Med ical 0.5 % cream 30 times Center daily. diflupredna 0 Yes Apply to [facility] 6-22 eye(s). [facility] - (DUREZOL) 12:38: Medical 0.05 % Drop 30 Center bromfenac 0 Yes Apply to [facility] (PROLENSA) 6- eye(s). [facility] - 0.07 % Drop 12:38: Medica l 30 Center polymyxin B Yes 1[drp] [address] sulf-trimet 04-05 [facility] - hoprim 12:38: Medical (POLYTRIM) 30 Center 10,000 unit- 1 mg/mL Drop nitroglycer Yes 1{spray Place [address] [facility] in 04-05 } spray [facility] - (NITROLINGU 12:38: under the M edical AL) 400 30 tongue Center mcg/spray every 5 spray (five) minutes as needed for Chest pain. multivit-mi Yes Take by [facility] n-FA-lycope 04-05 mouth. [facility] - n-lutein 12:38: Medical (CENTRUM 30 Center SILVER) 0.4-300-250 mg-mcg-mcg Tab zinc Yes 50mg QD Take [address] [address] gluconate 04-05 by mouth [facility] - 50 mg 12:38: daily. Medical tablet 30 Center fenofibrate Yes 145mg QD Take [address] (TRICOR) 6-22 mg by [facility] - 145 MG 12:38: mouth Medical tablet 30 daily. Center omega-3 Yes 2g Q.5D Take [address] [facility] acid ethyl 04-05 by mouth 2 Charanjit es - esters 12:38: (two) Medical (LOVAZA) 1 30 times Center gram daily. capsule Sulfamethox 2016-10 Yes Take by Harvey carlton azole-Trime 1-28 mouth. Daysi e thoprim 22:20: of (BACTRIM 11 Medicin OR) e Isosorbide Yes Take by [place] Mononitrate 8-17 mouth. Lennyg e 30 MG TB24 19:00: of 46 Medicin e Ranolazine Yes Take by [place] [facility] (RANEXA) 8-17 mouth. Level Green 500 MG TB12 19:00: of 46 Medicin e clopidogrel Yes 75mg Take 75 mg Ish[facility]el (PLAVIX) 75 8-17 by mouth Chloe ege MG tablet 19:00: daily. of 46 Medicin e clonazepam Yes .5mg Take 0.5 [place] [facility] (KLONOPIN) 8-17 mg by College 0.5 MG 19:00: mouth two of tablet 46 times Medicin daily. e metoprolol Yes 100mg Take 100 [facility] (TOPROL XL) 8-17 mg by Level [facility] 100 MG XL 19:00: mouth of tablet 46 daily. Medicin e Ranitidine Yes Take by [place] j[place] HCl 150 MG 8-17 mouth. Level [place] CAPS 19:00: of 46 Medicin e Offerle-3-aci Yes Take by Harvey carlton d Ethyl 8-17 mouth. Level [facility] Esters 19:00: of (LOVAZA) 1 46 Medicin GM CAPS e Fenofibrate Yes Take by Harvey carlton (FENOGLIDE) 8-17 mouth. Colleg e 120 MG TABS 19:00: of 46 Medicin e atorvastati Yes 80mg Take 80 mg [facility] n (LIPITOR) 817 by mouth Chloe ege 80 MG 19:00: daily. of tablet 46 Medicin e Multiple Yes Take by Ozzylo r Vitamins-Mi 8-17 mouth. Colleg e nerals 19:00: of (CENTRUM 46 Medicin SILVER) e TABS docusate Yes 100mg Take 100 [facility] or sodium 8-17 mg by Level [facility] (COLACE) 19:00: mouth two of 100 MG 46 times Medicin capsule daily. e Dexlansopra Yes Take by Harvey carlton zole 8-17 mouth. Level [place] (DEXILANT) 19:00: of 60 MG CPDR 46 Medicin e ramipril Yes 10mg Take 10 mg [place] (ALTACE) 10 8-17 by mouth Chloe ege MG capsule 19:00: daily. of 46 Medicin e Ranolazine Yes Take by [place] (RANEXA) 8-17 mouth. Level [place] 500 MG TB12 19:00: of 46 Medicin e Furosemide Yes Take by [place] j[place] (LASIX OR) 8-17 mouth. Level Green 19:00: of 46 Medicin e Levofloxaci Yes Take by Harvey carlton n (LEVAQUIN 8-17 mouth. Colleg e OR) 19:00: of 46 Medicin e Carboxymeth 2013-0 Yes Apply to [place] tovar ylcellul-Gl 7-25 eye. Level Green ycerin 18:42: of (REFRESH 35 Medicin OPTIVE OP) e Tamsulosin Yes Take by [place] j[place] HCl (FLOMAX 02-17 mouth. Colleg e OR) 18:55: of 10 Medicin e Nepafenac Yes 1[drp] 1 Drop [facility] (ILEVRO) - daily. College 0.3 % SUSP 00:00: of 00 Medicin e Vital Signs Vital Name Observation Time Observation Value Comments Source Systolic blood 2020-11-19 14:42:53 145 mm[Hg] Method ist [facility] pressure Diastolic blood 2020-11-19 14:42:53 66 mm[Hg] [facility] pressure Heart rate 2020-11-19 14:42:53 60 /min [facility] Body temperature 2020-11-19 14:42:53 36.28 Yan[facility] Respiratory rate 2020-11-19 14:42:53 17 /min [facility] Oxygen saturation in 2020-11-19 14:42:53 100 /min [facility] Arterial blood by Pulse oximetry Body weight 2020-11-19 09:20:22 81.693 kg [facility] BMI 2020-11-19 09:20:22 25.84 kg/m2 [facility] Body height 2020-11-14 18:28:00 177.8 cm [facility] Procedures Procedure Date / Time Performing Source Performed Clinician CT ANGIOGRAM ABDOMEN PELVIS W AND 2021-05-03 Nikhil Diaz OR WO CONTRAST 19:37:10 Hospital POC CREATININE 2021-05-03 Nikhil Diaz 17:58:00 Hospital ESTIMATED GFR 2021-05-03 Nikhil Diaz 17:58:00 Hospital COMPREHENSIVE METABOLIC PANEL 2021-03-30 Celso Bryant 20:00:00 Hospital HC COMPLETE BLD COUNT W/AUTO DIFF 2021-03-30 Jordan Bryant 20:00:00 Hospital PROTHROMBIN TIME WITH INR 2021-03-30 Celso Bryant 20:00:00 Hospital PARTIAL THROMBOPLASTIN TIME (PTT) 2021-03-30 Jordan Bryant 20:00:00 Hospital ESTIMATED GFR 2021-03-30 Celso Bryant 20:00:00 Hospital HC COMPLETE BLD COUNT W/AUTO DIFF 2020-11-19 Davi Linette Jason Tenriism 10:50:00 Hospital POC GLUCOSE 2020-11-18 Yelitzabrendan, Linette Jason Tenriism 23:46:00 Hospital POC GLUCOSE 2020-11-18 Davi, Linette Jason Tenriism 18:06:00 Hospital POC GLUCOSE 2020-11-18 Davi, Linette Jason Tenriism 13:56:00 Hospital HC COMPLETE BLD COUNT W/AUTO DIFF 2020-11-18 Yelitzabrendan Linette Jason Tenriism 11:52:00 Hospital NM GI BLEEDING STUDY 2020-11-18 Alex Palomo 04:29:16 [facility] POC GLUCOSE 2020-11-17 Yelitzabrendan, Linette Jason Tenriism 22:29:00 [facility] TRANSFUSE RED BLOOD CELLS 2020-11-17 Feliberto Dumont Method ist 19:04:51 Hospital POC GLUCOSE 2020-11-17 Yelitzabrendan Linette Jason Tenriism 13:46:00 Hospital HC COMPLETE BLD COUNT W/AUTO DIFF 2020-11-17 Yelitzabrendan, Linette Jason Tenriism 10:50:00 Hospital BASIC METABOLIC PANEL 2020-11-17 Yelitzabrendan, Linette Jason Method ist 10:50:00 Hospital ESTIMATED GFR 2020-11-17 Davi Linette Jason Tenriism 10:50:00 Hospital POC GLUCOSE 2020-11-17 [facility] Linette Jason Tenriism 02:31:00 [facility] TTE COMPLETE, WO CONTRAST, W 2020-11-17 Sandeep Damon Met hodist DOPPLER ([id number]) 00:42:26 [facility] HEMOGLOBIN & HEMATOCRIT 2020-11-16 Darnell, Lofton Telma Methodi st 18:47:00 [facility] ESOPHAGOGASTRODUODENOSCOPY (EGD) 2020-11-16 Alex Palomo 16:58:00 [facility] COLONOSCOPY 2020-11-16 Alex Palomo 16:58:00 [facility] HEMOGLOBIN & HEMATOCRIT 2020-11-16 Darnell, Lofton Telma Methodi st 14:19:00 Hospital LACTIC ACID LEVEL 2020-11-16 Sabiha Scanlon Tenriism 11:20:00 [facility] COMPREHENSIVE METABOLIC PANEL 2020-11-16 DarnellRolly patel M ethodist 11:20:00 Hospital HC COMPLETE BLD COUNT W/AUTO DIFF 2020-11-16 DarnellRolly patel oc Tenriism 11:20:00 Hospital MAGNESIUM LEVEL 2020-11-16 DarnellRolly patel Telma Tenriism 11:20:00 Hospital PHOSPHORUS LEVEL 2020-11-16 DarnellRolly patel Telma Tenriism 11:20:00 Hospital IONIZED CALCIUM 2020-11-16 DarnellRolly patel Tenriism 11:20:00 Hospital PROTHROMBIN TIME WITH INR 2020-11-16 Rolly Patrick Metho dist 11:20:00 Hospital ESTIMATED GFR 2020-11-16 DarnellRolly patel Tenriism 11:20:00 Hospital BILIRUBIN DIRECT 2020-11-16 DarnellRolly patel Tenriism 11:20:00 Hospital PARTIAL THROMBOPLASTIN TIME (PTT) 2020-11-16 DarnellRolly patel oc Tenriism 11:20:00 Hospital FIBRINOGEN 2020-11-16 DarnellRolly patel Tenriism 11:20:00 Hospital D-DIMER 2020-11-16 DarnellRolly patel Tenriism 11:20:00 Hospital POC GLUCOSE 2020-11-16 Linette Tomlinson Tenriism 10:19:00 Hospital BASIC METABOLIC PANEL 2020-11-16 Linette Tomlinson Method ist 08:56:00 Hospital TROPONIN 2020-11-16 Sabiha Scanlon Tenriism 08:56:00 Hospital ESTIMATED GFR 2020-11-16 Linette Tomlinson Tenriism 08:56:00 Hospital ECG 12-LEAD 2020-11-16 Sabiha Scanlon Tenriism 08:33:46 Hospital HEMOGLOBIN & HEMATOCRIT 2020-11-16 Sabiha Scanlonis t 07:25:00 Hospital HEMOGLOBIN & HEMATOCRIT 2020-11-16 Jani Christianis t 05:00:00 Hospital TRANSFUSE RED BLOOD CELLS 2020-11-16 Linette Tomlinson Mo thodist 04:53:29 Hospital TRANSFUSE RED BLOOD CELLS 2020-11-16 Linette Tomlinson Mo thodist 00:47:08 Hospital HC COMPLETE BLD COUNT W/AUTO DIFF 2020-11-15 Mary Nolascoist 12:07:00 Hospital BASIC METABOLIC PANEL 2020-11-15 Mary Nolascoist 12:07:00 Hospital PROTHROMBIN TIME WITH INR 2020-11-15 Gaurav Mary Method ist 12:07:00 Hospital ESTIMATED GFR 2020-11-15 Mary Nolascoist 12:07:00 Hospital HEMOGLOBIN & HEMATOCRIT 2020-11-15 Mary Nolascois t 04:30:00 Hospital LACTIC ACID LEVEL, SEPSIS - NOW 2020-11-15 Mejia Salinas AND REPEAT 2X EVERY 3 HOURS 02:25:00 Hosp ital TROPONIN 2020-11-15 Mejia Salinas 02:25:[address] RENAL STONE PROTOCOL 2020-11-14 Mejia Salinas Metho dist 23:12:31 Hospital LACTIC ACID LEVEL, SEPSIS - NOW 2020-11-14 Mejia Salinas AND REPEAT 2X EVERY 3 HOURS 22:54:00 Hosp ital TROPONIN 2020-11-14 Mejia Salinas 22:54:00 Hospital COVID-19 QUALITATIVE RT-PCR 2020-11-14 Mejia Salinas ethodist 22:54:00 Hospital HC COMPLETE BLD COUNT W/AUTO DIFF 2020-11-14 Kishor Salinas 20:30:00 Hospital PARTIAL THROMBOPLASTIN TIME (PTT) 2020-11-14 Kishor Salinas 20:30:00 Hospital PROTHROMBIN TIME WITH INR 2020-11-14 Mejia Salinas hodist 20:30:00 Hospital ECG 12-LEAD 2020-11-14 Mejia Salinas 20:23:12 Hospital B NATRIURETIC PEPTIDE 2020-11-[address] 19:28:00 Hospital ESTIMATED GFR 2020-11-14 Mejia Salinas 19:28:00 Hospital PREPARE RBC 2020-11-14 Feliberto Dumontist 19:28:00 Hospital OCCULT BLOOD, STOOL 2020-11-14 Mejia Salinas 19:28:00 Hospital PROTHROMBIN TIME WITH INR 2020-11-14 Mejia Salinas hodist 19:28:00 Hospital TYPE AND SCREEN 2020-11-14 Mejia Salinas 19:28:00 Hospital COMPREHENSIVE METABOLIC PANEL 2020-11-14 Mejia Salinas 19:28:00 Hospital LACTIC ACID LEVEL, SEPSIS - NOW 2020-11-14 Mejia Salinas AND REPEAT 2X EVERY 3 HOURS 19:28:00 Hosp ital TROPONIN 2020-11-14 Mejia Salinas 19:28:00 Hospital ECG ED PRELIMINARY INTERPRETATION 2020-11-14 Kishor Salinas 18:50:04 Hospital Plan of Care Planned Activity Planned Date Details Comments Source Future Scheduled 65+ PNEUMOCOCCAL [facility] Test VACCINE (1 of 2 - PPSV23) [code = 65+ PNEUMOCOCCAL VACCINE (1 of 2 - PPSV23)] Future Scheduled COVID-19 VACCINE (1) [facility] Test [code = COVID-19 VACCINE (1)] Future Scheduled SHINGLES VACCINES (#1) [facility] Test [code = SHINGLES VACCINES (#1)] Future Scheduled INFLUENZA VACCINE [code [facility] Test = INFLUENZA VACCINE] Future Scheduled MEDICARE AWV [code = [facility] Test MEDICARE AWV] Medicine Future Scheduled TETANUS SHOT (ADULT) [facility] Test [code = TETANUS SHOT Medicin e (ADULT)] Future Scheduled FALL SCREEN [code = [facility] FALL SCREEN] Medicine Future Scheduled PNEUMOVAX >=65 (PPSV23) [facility] Test [code = PNEUMOVAX >=65 Medic ine (PPSV23)] Future Scheduled PREVNAR >= 65 (PCV13) [facility] Test [code = PREVNAR >= 65 Medici ne (PCV13)] Future Scheduled FLU VACCINE > 6 MONTHS B [facility] Test [code = FLU VACCINE > 6 Medi cine MONTHS] Encounters Start End Encounter Admission Attending Care Care Encounter Source Date/Time Date/Time Type Type Clinicians Facility Department ID 2021-12-22 2021-12-22 Outpatient Lewitton_M [facility] [address] [place] 03:22:00 03:22:00 [facility] 2021-12-20 2021-12-20 Outpatient Lewitton_M [facility] [address] [place] 11:22:00 11:22:00 [facility] 2021-12-19 2021-12-19 Outpatient [facility]on_M [facility] [address] [place] 01:59:00 01:59:00 [facility] 2021-12-19 2021-12-19 Outpatient Annette, [facility] [id number] 00:00:00 00:00:00 Celso [id number] 2021-12-13 2021-12-13 Outpatient Nicolaitton_M [facility] [address] [place] 10:43:00 10:43:00 [facility] 2021-12-06 2021-12-06 Outpatient Nicolaitton_M [facility] [address] [place] 11:34:00 11:34:00 [facility] 2021-09-23 2021-09-23 Outpatient KJ DIONSanna [facility] [id number] [facility] 13:17:17 16:30:53 ANGIE Dunn Medicin tierra 2021-05-03 2021-05-03 Travel 1.2.840.1 [id number] [id number] Methodi 00:00:00 00:00:[address] 3.430.2.7 0.2.7.3.698 Ho spita .3.286384 084.8 l .8 2021-05-03 2021-05-03 [facility] 1.2.840.1 [id number] [place] 00:00:00 00:00:00 Encounter NIKHIL [id number] [address] .3.848547 .8 2021-04-29 2021-04-29 Travel 1.2.840.1 1.2.387.977 [id number] Methodi 00:00:00 00:00:[address] 3.430.2.7 0.2.7.3.698 Ho spita .3.508060 084.8 l .8 2021-04-272021-04-27 Orders Lily, 1.2.840.1 [id number] Methodi 00:00:00 00:00:00 Only Nikhil [address]100.1.[address] 3.430.2.7 Hospit a .3.093357 l .8 2021-04-26 2021-04-26 Transcribe Lily, 1.2.840.1 [id number] Methodi 00:00:00 00:00:00 Orders Nikhil 90077.1.[address] 3.430.2.7 Hospit a .3.345332 l .8 2021-04-26 2021-04-26 Transcribe Lily, 1.2.840.1 [id number] Methodi 00:00:00 00:00:[address]il 13562.1.[address] 3.430.2.7 Hospit a .3.000818 l .8 2021-04-25 2021-04-25 Outpatient [facility] [id number] [place] 03:29:00 03:29:00 0712 Medical Group 2021-03-30 2021-03-30 Lab Annette, 1.2.840.1 [id number] Methodi 14:29:54 14:34:[address] 3.430.2.7 Hospit a .3.151235 l .8 2021-03-30 2021-03-30 Outpatient Clint [facility] 1963 [id number] [place] 03:17:00 03:17:00 [id number] [facility] 2021-03-30 2021-03-30 Outpatient Annette Stanford [facility] [id number] 00:00:00 00:00:00 Celso [id number] 2021-03-30 2021-03-30 Travel 1.2.840.1 1.2.440.905 [id number] Methodi 00:00:00 00:00:[address] 3.430.2.7 0.2.7.3.698 spita .3.217007 084.8 l .8 2021-03-22 2021-03-22 Outpatient Lewsvetlanaon_M [facility] [address] [place] 04:07:00 04:07:00 [id number] [facility] 2021-02-19 2021-02-19 Outpatient Nicolaitton_M [facility] [address] [place] 01:04:00 01:04:00 [id number] [facility] 2021-01-19 2021-01-19 Outpatient Lewitton_M [facility] [address] [place] 02:54:00 02:54:00 [id number] [facility] 2021-01-19 2021-01-19 Outpatient Annette, U U 1890a [id number] 00:00:00 00:00:00 Celso [id number] 2020-11-23 2020-11-23 Patient Jono, 1.2.840.1 [id number] Methodi 00:00:00 00:00:00 Outreach Yari 98332.1.[address] 3.430.2.7 Hospit a .3.587485 l .8 2020-11-23 2020-11-23 Patient Jono, 1.2.840.1 [id number] Methodi 00:00:00 00:00:00 Outreach Yari 26246.1.[address] 3.430.2.7 Hospit a .3.650096 l .8 2020-11-22 2020-11-22 Patient Jono, 1.2.840.1 [id number] Methodi 00:00:00 00:00:00 Outreach Yari 99040.1.[address] 3.430.2.7 Hospit a .3.256424 l .8 2020-11-14 2020-11-19 [facility] Mejia Salinas 1.2.840.1 [id number] Methodi 12:38:00 09:55:00 Encounter Mary Nolasco 47223.1.[address] Linette Tomlinson 3.430.2.7 Hospita .3.994498 l .8 2020-11-16 2020-11-16 Anesthesia Brian Bender 1.2.8 40.1 [id number] Methodi 10:45:00 12:24:00 Event Sherry Quezada 46821.1.[address] 3.430.2.7 Hospit a .3.835378 l .8 2020-11-16 2020-11-16 Surgery Palomo, 1.2.840.1 [id number] Methodi 10:20:00 11:00:[address] [place] 3.430.2.7 Ho spita i .3.670932 l .8 2019-08-08 2019-08-08 Office THONY Smith 1.2.840.114 [id number] 14:28:12 14:38:12 Visit Celso Lennie AMBULATOR 350.1.13.21 Y 0.2.7.2.686 [id number] 2019-08-08 2019-08-08 Office THONY Smith 1.2.840.[id number] [place] [address] 14:28:12 14:38:12 Visit Celso Hogue AMBULATOR 350.1.13.21 College Y 0.2.7.2.686 of [id number] [facility] 300 e Results Test Description Test Time Test Comments Results Result [facility] e Comments CTA Abdomen 2021-04-15 EXAMINATION: CT Methodi st Pelvis W And Or 0 ANGIOGRAM ABDOMEN Ho spital Wo Contrast 21:33:57 PELVIS W AND OR WO CONTRAST CLINICAL HISTORY: N40.1 Benign prostatic hyperplasia with lower urinary tract symptoms, N13.8 Other obstructive and reflux uropathy, BPH TECHNIQUE: Multiple CT angiographic images of the abdomen and pelvis were obtained during intravenous administration of contrast. Multiple computerized reformatted images as well as 3-D volume rendered images were also obtained. CT imaging was performed with iterative reconstruction techniques and/or automated exposure control to reduce radiation dose. COMPARISON: None. IMPRESSION: CTA:Visualized Chest:Thoracic aorta: The visualized thoracic aorta is non-aneurysmal.Visual ized Heart: Four-chamber cardiomegaly. 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 No visualized pericardial effusion. Abdomen/Pelvis:Aorta: Calcifications of the aorta without aneurysmal change. No evidence of dissection.Celiac, SMA, and RAGHAV: Patent. Conventional hepatic anatomy.Renal arteries: Normal variant 2 right-sided renal arteries. 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 Scattered calcifications suggest a degree of chronicity associated with the dissection. The right common femoral artery appears patent. Scattered calcifications of the right common femoral artery and visualized portions of the right SFA. Scattered calcifications mildly narrow the left common iliac and internal iliac arteries. Calcifications mildly narrow the left common iliac artery. The right internal iliac artery demonstrates multifocal calcifications with mild narrowing. Type a internal iliac anatomy is noted. The right obturator artery arises from the anterior division of the right internal iliac artery. The origin of the right prostatic artery is not well delineated on this examination but is potentially arising from the trifurcation of the obturator, internal pudendal, and inferior gluteal artery as seen on series 2 image 141. The left internal iliac artery demonstrates multifocal calcifications with mild narrowing. Type a internal iliac anatomy is present. The obturator artery on the left arises from the anterior division. The origin of the prostate artery on the left is not well delineated on this examination. Other: None. Other findings:Visualized Thorax:Lower Chest: Reticular changes within the lung bases with mild bronchiectasis may suggest early fibrotic change. Abdomen/Pelvis:Evalua tion of solid organs is suboptimal given arterial phase of imaging. Liver: Normal in size and contour without discrete mass. Gallbladder/Biliary: Status post cholecystectomy. Mild pneumobilia is present. This may be seen is a common finding post cholecystectomy.Splee n: Normal in size.Pancreas: Fatty infiltration of the pancreasAdrenal Glands: Unremarkable.Kidneys: Multiple nonobstructing renal stones measuring up to 0.6 cm within the left kidney. No evidence of hydronephrosis. Right upper pole renal cyst. No hydronephrosis.Nodes: No regional adenopathy.Bowel: Multiple colonic diverticula. Status post sigmoidectomy with patent anastomosis. Moderate stool burden. No evidence of bowel obstruction.Ascites/f luid collections: None. Lymphovascular: No pelvic adenopathy. Reproductive organs: The prostate measures 4.8 x 3.7 x 4.3 cm with ellipsoid volume of 40 cc.Bladder: Thickened urinary bladder with high attenuating material along the nondependent portion of the bladder may be related to underlying mass versus focal hypertrophy and correlation with cystoscopy is recommended.Other: None. Soft tissue and Bones:Musculoskeletal : Degenerative changes of the osseous structures. No suspicious lesions. Demineralized osseous structures. Mild scoliotic changes.Soft Tissues: None. 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 4.High attenuating material within the nondependent portion of the urinary bladder. Findings may be related to an underlying mass. Correlation with cystoscopy is recommended.5.Multipl e additional findings as above. [id number] Interface, Radiology Results Incoming - 05/03/2021 4:37 PM CDT EXAMINATION: CT ANGIOGRAM ABDOMEN PELVIS W AND OR WO CONTRASTCLINICAL HISTORY: N40.1 Benign prostatic hyperplasia with lower urinary tract symptoms, N13.8 Other obstructive and reflux uropathy, BPHTECHNIQUE: Multiple CT angiographic images of the abdomen and pelvis were obtained during intravenous administration of contrast. Multiple computerized reformatted images as well as 3-D volume rendered images were also obtained. CT imaging was performed with iterative reconstruction techniques and/or automated exposure control to reduce radiation dose. COMPARISON: None.IMPRESSION:CTA:V isualized Chest:Thoracic aorta: The visualized thoracic aorta is non-aneurysmal.Visual ized Heart: Four-chamber cardiomegaly. 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 No visualized pericardial effusion.Abdomen/Pelv is:Aorta: Calcifications of the aorta without aneurysmal change. No evidence of dissection.Celiac, SMA, and RAGHAV: Patent. Conventional hepatic anatomy.Renal arteries: Normal variant 2 right-sided renal arteries. 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 Scattered calcifications suggest a degree of chronicity associated with the dissection. The right common femoral artery appears patent. Scattered calcifications of the right common femoral artery and visualized portions of the right SFA.Scattered calcifications mildly narrow the left common iliac and internal iliac arteries. Calcifications mildly narrow the left common iliac artery.The right internal iliac artery demonstrates multifocal calcifications with mild narrowing. Type a internal iliac anatomy is noted. The right obturator artery arises from the anterior division of the right internal iliac artery. The origin of the right prostatic artery is not well delineated on this examination but is potentially arising from the trifurcation of the obturator, internal pudendal, and inferior gluteal artery as seen on series 2 image 141.The left internal iliac artery demonstrates multifocal calcifications with mild narrowing. Type a internal iliac anatomy is present. The obturator artery on the left arises from the anterior division. The origin of the prostate artery on the left is not well delineated on this examination.Other: None.Other findings:Visualized Thorax:Lower Chest: Reticular changes within the lung bases with mild bronchiectasis may suggest early fibrotic change.Abdomen/Pelvis :Evaluation of solid organs is suboptimal given arterial phase of imaging. Liver: Normal in size and contour without discrete mass. Gallbladder/Biliary: Status post cholecystectomy. Mild pneumobilia is present. This may be seen is a common finding post cholecystectomy.Splee n: Normal in size.Pancreas: Fatty infiltration of the pancreasAdrenal Glands: Unremarkable.Kidneys: Multiple nonobstructing renal stones measuring up to 0.6 cm within the left kidney. No evidence of hydronephrosis. Right upper pole renal cyst. No hydronephrosis.Nodes: No regional adenopathy.Bowel: Multiple colonic diverticula. Status post sigmoidectomy with patent anastomosis. Moderate stool burden. No evidence of bowel obstruction.Ascites/f luid collections: None. Lymphovascular: No pelvic adenopathy. Reproductive organs: The prostate measures 4.8 x 3.7 x 4.3 cm with ellipsoid volume of 40 cc.Bladder: Thickened urinary bladder with high attenuating material along the nondependent portion of the bladder may be related to underlying mass versus focal hypertrophy and correlation with cystoscopy is recommended.Other: None.Soft tissue and Bones:Musculoskeletal : Degenerative changes of the osseous structures. No suspicious lesions. Demineralized osseous structures. 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 4.High attenuating material within the nondependent portion of the urinary bladder. Findings may be related to an underlying mass. Correlation with cystoscopy is recommended.5.Multipl e additional findings as above.[id number] POC creatinine 2021-05-03 18:00:46 Test Item Value Reference Range Interpretation Comme nts POC creatinine (test code = 94075-2) 1.1 mg/dl 0.7-1.2 [id number] 18:00:46 Test Item Value Reference Range Interpretation Comments Estimated GFR (test code = 91586-4) mL/min/1.73 m2 [facility] GI Bleeding [id number] 04:38:29Procedure: MO GI BLEEDING STUDY Clinical History: GI bleed Comparison: None. Technique:4 cc of the patient's blood were removed and the RBCs labeled in vitro with 25 mCi of [id number]. Thelabeled blood was then reinjected into the patient and dynamic imaging of the abdomen was performed for 1 hour. Findings:Physiological uptake is present in the blood pool structures. There are no abnormal collections of tracer. Impression:Negative GI bleeding scan. No evidence of active bleeding during this scan. [facility]-[id number] Interface, Radiology Results - 11/17/2020 10:41 PM CST Procedure: MO GI BLEEDING STUDYClinical History: GI bleedComparison: None.Technique:4 cc of the patient's blood were removed and the RBCs labeled in vitro with 25 mCi of [id number]. The labeled blood was then reinjected into the patient and dynamic imaging of the abdomen was performed for 1 hour.Findings:Physiological uptake is present in the blood pool structures. There are no abnormal collections of tracer.Impression:Negative GI bleeding scan. No evidence of active bleeding during this scan.[facility]-[id number] [facility]an[facility]ocardi[facility] Complete, (w Contrast, Strain and 3D if needed)2020-11-17 23:35:02 Test Item Value Reference Range Interpretation Comments Velocity Ratio (V1/V2) (test code = 0.63 m/s 4689) IVS,d (test code = 8886708121) 1.50 cm EF (test code = 5911416437) 51.65 % LVPWD,d (test code = 7563125545) 1.46 cm AoV Mean PG (test code = mmHg 3336664522) AV LVOT peak gradient (test code = mmHg 0187860821) MV mean gradient (test code = mmHg 4036803862) MV valve area p 1/2 method (test 3.32 cm2 code = 5146881466) PV Pk Grad (test code = 5489326440) mmHg E/A ratio (test code = 5592150006) E wave decelartion time (test code msec = 0973703960) LVOT Diam,S (test code = 2.18 cm 8075520491) LVOT area (test code = 5026416939) 3.73 cm2 LVOT Vmax (test code = 5586129112) 1.21 m/s LVOT VTI (test code = 6895956985) 0.24 m RVOT Vmax (test code = 9740429857) 1.18 m/s AoV Peak PG (test code = mmHg 4784821689) PV Mean Grad (test code = mmHg 2325488898) MV Peak E Hayden (test code = 0.84 m/s 3273726802) MV stenosis pressure 1/2 time (test 66.34 ms code = 8202261019) MV Peak A Hayden (test code = 0.96 m/s 8177902984) Ao Root Diameter (test code = 3.32 cm 7246014642) AoV Area, Vmax (test code = 2.34 cm2 4382035258) AoV Area, VTI (test code = 2.74 cm2 1588722189) AoV Vmax (test code = 6588090894) 1.93 m/s IVS/LVPW,2D (test code = 0713369953) Left Atrium Dimension Anterior 4.13 cm (test code = 6898601774) LV,d (test code = 8569559394) 2.48 cm LV,s (test code = 6616846412) 1.86 cm PV VMAX (test code = 6364467523) 1.57 m/s PV VTI (test code = 4346733926) 0.32 m RVSP (TR) (test code = 9650854013) mmHg TR Vpeak (test code = 6052183869) 2.21 mm/s MV E A ratio (test code = 6366762938) RA pressure (test code = mmHg 9192172799) TR pk grad (test code = 9155276382) mmHg MR peak grad (test code = mmHg 2465113986) PV Vmn (test code = 9511160510) RVSP (test code = 4030609347) mmHg Ao Root Diameter (test code = 3.32 cm 0286945765) LV SYS VOL (test code = 7929128575) 10.54 ml LV MONDRAGON VOL (test code = 21.80 ml 8489239958) LA area s A4C (test code = 23.14 cm2 5115099233) LA Vol MOD A4C (test code = 80.06 ml 6574775581) LV SV Teich 2D (test code = 11.26 ml 2765555351) LV Vol s Teich PSAX (test code = 10.54 ml 5385430651) MV Vmax (test code = 7691301532) 1.03 m MV VTI Tips (test code = 0.28 m 2373097148) RVOT pk grad (test code = mmHg 4380747092) AoV Vmn (test code = 4302980623) LV FS Cube 2D (test code = 6890984692) LV FS Teich 2D (test code = 7608680875) AoV VTI (test code = 2487307621) 0.32 m LV EF,2D (test code = 4439692707) 57.80 % MR Vmax (test code = 9876379231) 4.51 m/s MV AE ratio (test code = 7769062400) LVOT Vmn (test code = 6381540780) Aov area Vmn (test code = 2.29 cm2 2476920435) LVOT mean grad (test code = mmHg 7789470727) MAX Pred HR (test code = 0978200942) 85 of MPHR (test code = 8221134548) Calc MPHR (test code = 4608084379) bpm LV SV Cube 2D (test code = 8.78 ml 9123769797) LV vol d cube 2D (test code = 15.19 ml 3521201171) LV vol s cube 2D (test code = 6.41 ml 5601953527) MV Decel slope (test code = 3.66 m/s2 4721503211) Pred Exer Dur R1 (test code = 2220297650) Pred METS R1 (test code = 5703194178) WALTER (test code = WALTER) [facility] 12 [id number] 17:03:53 Test Item Value Reference Range Interpretation Comments Ventricular rate (test code = 253) Atrial rate (test code = 255) QRSD interval (test code = 260) QT interval (test code = 264) QTC interval (test code = 265) QRS axis 1 (test code = 268) T wave axis (test code = 270) EKG impression (test code = 273) [facility]al Stone [id number] 00:34:09EXAMINATION: CT RENAL STONE PROTOCOL CLINICAL HISTORY: rectalbleeding contrast allergy TECHNIQUE:Multiple axial images of the abdomen and pelvis were obtained without intravenous administration of iodinated contrast. Sagittal and coronal computerized reformatted images were also obtained. The lackof intravenous contrast reduces the sensitivity of detecting solid organ disease.Automatic exposure control or iterative reconstruction techniques used to reduce dose. COMPARISON: None. Impression: 1.Mild left lung basilar patchy and groundglass opacities are nonspecific. Without IV contrast, evaluation of solid organs of upper abdomen is limited. Large right-sided upper pole renal cyst measuring 6.5 cm. Left-sided nephrolithiasis measuring 1 cm in the lower pole calyx, without hydronephrosis. Status post cholecystectomy. 2.Extensive diverticulosis, status post sigmoid colon segmental resection. Moderate amount of stool scattered throughout the colon. No focal wall thickening noted. Small bowel loops are unremarkable without obstruction. 3.Scoliosis and degenerative disc changes of the lumbar spine. Compression fracture of T12 vertebral body. Extensive vascular calcifications. Summary: 1.Large amount of retained stool throughout the colon. Extensive diverticulosis status post sigmoid resection. No significant focal colonic wall thickening or pericolonic edema. 2. Left-sided nephrolithiasis wit hout hydronephrosis. 3.T12 compression fracture. [facility] Interface, Radiology Results Incoming- 11/14/2020 6:37 PM CST EXAMINATION: CT RENAL STONE PROTOCOLCLINICAL HISTORY: rectalbleeding contrast allergyTECHNIQUE: Multiple axial images of the abdomen and pelvis were obtained without intravenous administration of iodinated contrast. Sagittal and coronal computerized reformatted images were also obtained. The lack of intravenous contrast reduces the sensitivity of detecting solid organ disease.Automatic exposure control or iterative reconstruction techniques used to reduce dose.COMPARISON: None.Impression:1.Mild left lung basilar patchy and groundglass opacities are nonspecific. Without IV contrast, evaluation of solid organs of upper abdomen is limited. Large right-sided upper pole renal cyst measuring 6.5 cm. Left-sided nephrolithiasis measuring 1 cm in the lower pole calyx, without hydronephrosis. Status post cholecystectomy.2.Extensive diverticulosis, status post sigmoid colon segmental resection. Moderate amount of stool scattered throughout the colon. No focal wall thickening noted. Small bowel loops are unremarkablewithout obstruction.3.Scoliosis and degenerative disc changes of the lumbar spine. Compression fracture of T12 vertebral body. Extensive vascular calcifications.Summary:1.Large amount of retained stoolthroughout the colon. Extensive diverticulosis status post sigmoid resection. No significant focal co lonic wall thickening or pericolonic edema.2. Left-sided nephrolithiasis without hydronephrosis.3.T12 compression fracture.[facility] ED Preliminary Interpretation - Not an [id number] 18:50:04 Test Item Value Reference Range Interpretation Comments WALTER (test code = WALTER) Lab Interpretation (test code = Abnormal 71349-8) [facility] HospitalErythrocyte Sedimentation Rate [id number] 23:43:12 Test Item Value Reference Range Interpretation Comments ESR STAT (test code = ESR STAT) 9 mm/hr 0-9 Creatine [id number] 23:17:27 Test Item Value Reference Range Interpretation Comments CK (test code = CK) 34 U/L 39-308 L
[2021-12-24] MEDS ORDERED: LIDOCAINE 1% W/EPI 1:100,000 MDV 50 ML VIAL ONE (16:05)
[2021-12-24 16:39] LABS: Absolute Lymphocytes (CBC) 0.5 K/uL (0.7-4.9); Hematocrit 34.7 % (39.6-49.0); Lymphocytes % 10.8 % (15.3-44.8); MPV 8.3 fL (7.6-11.3); RBC Red Blood Cell Count 3.58 M/uL (4.33-5.43)
[2021-12-24] MEDS ORDERED: NA CHLORIDE 0.9% 500 ML ONE (16:39)
[2021-12-24] MEDS ORDERED: TETANUS & DIPHTHERIA TOX,ADULT 0.5 ML VIAL ONE (16:40)
[2021-12-24] MEDS ORDERED: CEFAZOLIN SODIUM 1 GM/VIAL ONE (16:40)
[2021-12-24 16:53] LABS: Potassium 3.7 mmol/L (3.5-5.1)
--- NOTE | 2021-12-24 17:11 | RAD REPORT ---
EXAM DESCRIPTION: CT - Head C Spine Cap Wo Con - 12/24/2021 4:59 pm CLINICAL HISTORY: Trauma, head and neck injury. Chest, abdomen and pelvis pain. Pain;Swelling COMPARISON: Hand Left 3 View dated 12/24/2021 TECHNIQUE: CT head without contrast. CT cervical spine without contrast with coronal and sagittal reformatted images. CT chest, abdomen and pelvis without contrast with coronal and sagittal reformatted images of the spi ne. All CT scans are performed using dose optimization technique as appropriate and may include automated exposure control or mA/KV adjustment according to patient size. FINDINGS: CT HEAD WITHOUT CONTRAST: No intracranial hemorrhage, hydrocephalus or extra-axial fluid collection. Mild brain atrophy. No are as of brain edema or midline shift. The paranasal sinuses and mastoids are clear. The calvarium is intact. Small left frontal scalp hemat leona. CT CERVICAL SPINE WITHOUT CONTRAST: No fracture or subluxation. Moderate midcervical spondylosis. The prevertebral soft tissues are andrea l in thickness. CT CHEST, ABDOMEN, PELVIS WITHOUT CONTRAST: NOTE: Lack of contrast is a significant limitation in the assessment of trauma related findings. Spec ifically, solid organ, vascular and bowel evaluation is significantly limited. Mild interstitial pulmonary edema.Cholecystectomy.No pneumothorax or pericardial/pleural fluid. No evidence of intra-abdominal visceral injury, free fluid or free air is seen within the above detai led limitations. Bilateral renal stone without hydronephrosis. No concerning pelvic findings. Diffuse osteopenia. Moderate T12 compression deformity, age undetermined but favored to be old. IMPRESSION: Negative for acute traumatic findings within the above detailed limitations.
--- NOTE | 2021-12-24 17:12 | RAD REPORT ---
EXAM DESCRIPTION: RAD - Hand Left 3 View - 12/24/2021 5:02 pm CLINICAL HISTORY: PAIN COMPARISON: No comparisons FINDINGS: Fracture is seen involving the base of the fourth and fifth metacarpal. Oblique fracture a lso seen the distal aspect of the fourth metacarpal.
--- NOTE | 2021-12-24 17:17 | RAD REPORT ---
EXAM DESCRIPTION: RAD - Shoulder Left 2 View - 12/24/2021 5:02 pm CLINICAL HISTORY: PAIN COMPARISON: Head C Spine Cap Wo Con dated 12/24/2021 FINDINGS: Diffuse osteopenia is noted. No fracture or dislocation seen.
--- NOTE | 2021-12-24 17:52 | EDPHYS ---
Physician Documentation [facility] Name: Mikhail Mullen Age: 81 yrs Sex: Male : 1940 Arrival Date: 12/24/2021 Time: 15:47 Bed 3 Private MD: ED Physician Dario Rodarte HPI: 12/24 16:06 This 81 yrs old Male presents to ER via Unassigned with complaints of Fall savannah Injury. 16:06 Details of fall: The patient fell from an upright position, while walking. Onset: The savannah symptoms/episode began/occurred just prior to arrival. Associated injuries: The patient sustained injury to the head, left hand, decreased range of motion, laceration. Severity of symptoms: At their worst the symptoms were mild, in the emergency department the symptoms are unchanged. The patient has not experienced similar symptoms in the past. Historical: - Allergies: 17:23 PENICILLINS; jg9 17:23 IV contrast dye; jg9 - PMHx: 17:27 Coronary atherosclerosis; Hypertensive disorder; jg9 - PSHx: 17:27 Coronary Angioplasty; Cholecystectomy; umbilical hernia repair; jg9 - Immunization history:: Adult Immunizations up to date. - Family history:: not pertinent. - Social history:: Smoking status: Patient/guardian denies using tobacco, the patient reports quitting approximately 25 years ago. ROS: 16:06 Constitutional: Negative for fever, chills, and weight loss, Eyes: Negative for injury, savannah pain, redness, and discharge, ENT: Negative for injury, pain, and discharge, Neck: Negative for injury, pain, and swelling, Cardiovascular: Negative for chest pain, palpitations, and edema, Respiratory: Negative for shortness of breath, cough, wheezing, and pleuritic chest pain, Abdomen/GI: Negative for abdominal pain, nausea, vomiting, diarrhea, and constipation, Back: Negative for injury and pain, : Negative for injury, bleeding, discharge, and swelling, Skin: Negative for injury, rash, and discoloration, Neuro: Negative for headache, weakness, numbness, tingling, and seizure, Psych: Negative for depression, anxiety, suicide ideation, homicidal ideation, and hallucinations, Allergy/Immunology: Negative for hives, rash, and allergies, Endocrine: Negative for neck swelling, polydipsia, polyuria, polyphagia, and marked weight changes, Hematologic/Lymphatic: Negative for swollen nodes, abnormal bleeding, and unusual bruising. 16:06 MS/extremity: Positive for decreased range of motion, ecchymosis, pain, of the left hand. 16:06 Skin: Positive for laceration(s), of the face and left hand. Exam: 16:06 Constitutional: This is a well developed, well nourished patient who is awake, alert, savannah and in no acute distress. Head/Face: Normocephalic, atraumatic. Eyes: Pupils equal round and reactive to light, extra-ocular motions intact. Lids and lashes normal. Conjunctiva and sclera are non-icteric and not injected. Cornea within normal limits. Periorbital areas with no swelling, redness, or edema. ENT: Nares patent. No nasal discharge, no septal abnormalities noted. Tympanic membranes are normal and external auditory canals are clear. Oropharynx with no redness, swelling, or masses, exudates, or evidence of obstruction, uvula midline. Mucous membranes moist. Neck: Trachea midline, no thyromegaly or masses palpated, and no cervical lymphadenopathy. Supple, full range of motion without nuchal rigidity, or vertebral point tenderness. No Meningismus. Cardiovascular: Regular rate and rhythm with a normal S1 and S2. No gallops, murmurs, or rubs. Normal PMI, no JVD. No pulse deficits. Respiratory: Lungs have equal breath sounds bilaterally, clear to auscultation and percussion. No rales, rhonchi or wheezes noted. No increased work of breathing, no retractions or nasal flaring. Abdomen/GI: Soft, non-tender, with normal bowel sounds. No distension or tympany. No guarding or rebound. No evidence of tenderness throughout. Back: No spinal tenderness. No costovertebral tenderness. Full range of motion. Male : Normal genitalia with no discharge or lesions. MS/ Extremity: Pulses equal, no cyanosis. Neurovascular intact. Full, normal range of motion. Neuro: Awake and alert, GCS 15, oriented to person, place, time, and situation. Cranial nerves II-XII grossly intact. Motor strength 5/5 in all extremities. Sensory grossly intact. Cerebellar exam normal. Normal gait. Psych: Awake, alert, with orientation to person, place and time. Behavior, mood, and affect are within normal limits. 16:06 Chest/axilla: Inspection: normal, Palpation: tenderness, that is mild, of the left breast, Axilla: are normal, Lymph nodes: lymphadenopathy is not appreciated. 16:51 ECG was reviewed by the Attending Physician. [facility] 17:45 ECG was reviewed by the Attending Physician. [facility] Vital Signs: 16:00 BP 184 / 80; Pulse 58; Resp 20 S; Temp 98.8; Pulse Ox 100% on R/A; Weight 70.31 kg (R); jg9 Height 5 ft. 10 in. (177.80 cm) (R); 17:15 BP 183 / 78; Pulse 66; Resp 17 S; Pulse Ox 100% on R/A; jg9 17:43 BP 192 / 80; Pulse 68; Resp 18; Pulse Ox 98% on R/A; ph 18:30 BP 172 / 86; Pulse 69; Resp 15 S; Pulse Ox 98% on R/A; jg9 23:00 BP 197 / 84; Pulse 68; Resp 17; Pulse Ox 100% on R/A; Pain 7/10; kd3 16:00 Body Mass Index 22.24 (70.31 kg, 177.80 cm) jg9 [place] Coma Score: 16:00 Eye Response: spontaneous(4). Verbal Response: oriented(5). Motor Response: obeys jg9 commands(6). Total: 15. Trauma Score (Adult): 16:00 Eye Response: spontaneous(1); Verbal Response: oriented(1); Motor Response: obeys jg9 commands(2); Systolic BP: > 89 mm Hg(4); Respiratory Rate: 10 to 29 per min(4); [place] Score: 15; Trauma Score: 12 Procedures: 17:41 Performed 1 cm laceration left lateral eye, flap , prepped closed with 3 x 5.0 prolene savannah , interrupted. . 3rd laceration left palm of hand, 1 cm skin tear laceration, irrigated and closed with 2 x 5.0 prolene,all cleaned and dressed. Laceration: 17:41 Wound Repair of 2.5cm ( 1.0in ) subcutaneous laceration to face and left hand. Linear savannah shaped.. Distal neuro/vascular/tendon intact. Anesthesia: Local anesthetic administered with 4 mls of 1% lidocaine w/ Epi. Wound prep: Simple cleansing by me. Skin closed with 2 5-0 Prolene using interrupted sutures and sterile technique. Dressed with Neosporin, pressure dressing. Patient tolerated well. MDM: 15:58 Patient medically screened. [facility] 16:09 Differential diagnosis: abrasion, closed head injury, contusion, laceration, multiple savannah trauma, sprain, strain. Data reviewed: vital signs, nurses notes, lab test result(s), EKG, radiologic studies, CT scan, plain films. 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 Test interpretation: by ED physician or midlevel provider: ECG, plain radiologic studies. Counseling: I had a detailed discussion with the patient and/or guardian regarding: the historical points, exam findings, and any diagnostic results supporting the discharge/admit diagnosis, lab results, radiology results, the need for outpatient follow up. 12/24 16:06 Order name: Basic Metabolic Panel; Complete Time: 17:35 [facility] 12/24 16:06 Order name: CBC with Diff; Complete Time: 17:35 [facility] 12/24 16:06 Order name: Type And Screen; Complete Time: 17:35 [facility] 12/24 17:39 Order name: LFT's; Complete Time: 18:43 [facility] 12/24 17:39 Order name: Magnesium; Complete Time: 18:43 [place] 12/24 17:39 Order name: NT PRO-BNP; Complete Time: 18:43 [facility] 12/24 16:06 Order name: CT Traumagram (Head C Spine CAP wo con); Complete Time: 17:35 [facility] 12/24 16:06 Order name: Hand Left 3 View XRAY; Complete Time: 17:35 [facility] 12/24 16:06 Order name: INCENTIVE SPIROMETRY [facility] 12/24 16:06 Order name: Shoulder Left (2 View) XRAY; Complete Time: 17:35 [facility] 12/24 17:39 Order name: PT-INR; Complete Time: 18:43 [facility] 12/24 17:39 Order name: Troponin HS; Complete Time: 18:43 [facility] 12/24 17:39 Order name: XRAY Chest (1 view); Complete Time: 18:43 [facility] 12/24 19:19 Order name: COVID-19 SARS RT PCR (Document "Date of Onset" if Symptomatic) lp1 03/12 16:06 Order name: Labs collected and sent; Complete Time: 16:34 [facility] 12/24 16:06 Order name: EKG; Complete Time: 16:07 [place] 12/24 16:06 Order name: EKG - Nurse/Tech; Complete Time: 17:14 [place] 12/24 16:06 Order name: Dressing - Wound; Complete Time: 17:55 [facility] 12/24 16:06 Order name: Gloves, Sterile; Complete Time: 16:34 12/24 16:06 Order name: Prolene, Sutures; Complete Time: 17:14 12/24 16:06 Order name: Setup Suture Tray; Complete Time: 16:33 12/24 17:41 Order name: EKG; Complete Time: 17:41 [facility] 12/24 16:06 Order name: Ice pack; Complete Time: 18:31 12/24 17:38 Order name: Wound Care: neosporin to all lacerations; Complete Time: 17:55 12/24 17:39 Order name: Ulnar Gutter splint: left hand, fx 4th and 5th; Complete Time: 18:48 12/24 17:39 Order name: Cardiac monitoring; Complete Time: 17:55 12/24 17:39 Order name: IV Saline Lock; Complete Time: 17:55 [place] 12/24 17:39 Order name: O2 Per Protocol; Complete Time: 22:09 12/24 17:39 Order name: O2 Sat Monitoring; Complete Time: 17:55 12/24 17:41 Order name: EKG - Nurse/Tech; Complete Time: 17:41 [facility] EC:51 Rate is 57 beats/min. Rhythm is regular. QRS [place] is Normal. [place] interval is normal. QRS savannah interval is normal. QT interval is normal. No Q waves. T waves are Normal. No ST changes noted. Clinical impression: NSR w/ Non-specific ST/T Changes and No evidence of ischemia. Interpreted by me. Reviewed by me. 17:45 Rate is 69 beats/min. Rhythm is regular. QRS [place] is Normal. [place] interval is normal. QRS savannah interval is normal. QT interval is normal. No Q waves. T waves are Normal. Clinical impression: NSR w/ Non-specific ST/T Changes and No evidence of ischemia. Interpreted by me. Reviewed by me. Administered Medications: 18:45 Discontinued: NS 0.9% 500 ml IV at bolus once [facility] 17:14 Drug: Lidocaine-Epinephrine -1%: (1:100,000) 10 ml Volume: 20 ml; Route: Infiltration; jg9 18:32 Follow up: Response: No adverse reaction jg9 22:56 Follow up: Response: No adverse reaction kd3 18:10 Drug: NS 0.9% 500 ml Route: IV; Rate: bolus; Site: right antecubital; jg9 22:57 Follow up: Response: No adverse reaction kd3 18:10 Drug: Nitro-Bid (nitroglycerin) Ointment 2 % 1 inches Route: Transdermal; Site: 9 anterior chest wall; 18:15 Follow up: Response: No adverse reaction; Pain is decreased j9 22:56 Follow up: Response: No adverse reaction kd3 18:14 Not Given (Patient Refused): Aspirin Chewable Tablet 81 mg PO once j9 18:15 Drug: Ancef (cefazolin) 1 grams Route: IVPB; Site: right antecubital; 9 18:32 Follow up: Response: No adverse reaction; IV Status: Completed infusion jg9 22:56 Follow up: Response: No adverse reaction kd3 18:15 Drug: Lasix (furosemide) 20 mg Route: IVP; Site: right antecubital; j9 18:33 Follow up: Response: No adverse reaction jg9 22:55 Follow up: Response: No adverse reaction kd3 18:20 Drug: Tetanus-Diphtheria Toxoid Adult 0.5 ml {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 Exp: jg9 03/04/2023. Lot #: [id number]. } Route: IM; Site: left deltoid; 18:32 Follow up: Response: No adverse reaction jg9 22:57 Follow up: Response: No adverse reaction kd3 18:33 Drug: [place] (HYDROcodone-acetaminophen) 10 mg-325 mg 1 tabs Route: PO; jg9 18:48 Follow up: Response: No adverse reaction j9 22:55 Follow up: Response: Pain is decreased kd3 23:36 Follow up: Response: Pain is decreased kd3 Disposition Summary: 12/24/21 17:52 Hospitalization Ordered Hospitalization Status: Observation savannah Provider: Lio Vega cha Location: Telemetry/MedSurg (Inpatient) savannah Condition: Stable savannah Problem: new savannah Symptoms: have improved savannah Bed/Room Type: Standard [facility] Room Assignment: 409(12/24/21 22:38) mw Diagnosis - Fall (on) (from) other stairs and steps savannah - Unspecified injury of head, initial encounter savannah - Laceration without foreign body of other part of head - left periorbital, left savannah forehead - Laceration without foreign body of left hand, initial encounter savannah - Displaced fracture of neck of other metacarpal bone, initial encounter for closed savannah fracture - 4th - Displaced fracture of base of fifth metacarpal bone, left hand, initial encounter savannah for closed fracture - Displaced fracture of base of fourth metacarpal bone, left hand, initial encounter savannah for closed fracture - Dyspnea savannah - Chest pain, unspecified savannah - Unspecified combined systolic (congestive) and diastolic (congestive) heart failure savannah Forms: - Medication Reconciliation Form savannah - SBAR form savannah Signatures: Dispatcher [employer] EDMS Ashley Sparks RN RN mw Anderson, Corey, MD MD cha Gilmore, Jennifer, RN RN jg9 Jahaira Raya RN kd3 Corrections: (The following items were deleted from the chart) 18:45 18:45 Diastolic (congestive) heart failure savannah savannah 22:38 17:52 [place] ruby
--- NOTE | 2021-12-24 17:52 | ER ---
Nurse's Notes [facility] Name: Mikhail Mullen Age: 81 yrs Sex: Male : 1940 Arrival Date: 12/24/2021 Time: 15:47 Bed 3 Private MD: Diagnosis: Fall (on) (from) other stairs and steps;Unspecified injury of head, initial encounter;Laceration without foreign body of other part of head-left periorbital, left forehead;Laceration without foreign body of left hand, initial encounter;Displaced fracture of neck of other metacarpal bone, initial encounter for closed fracture-4th;Displaced fracture of base of fifth metacarpal bone, left hand, initial encounter for closed fracture;Displaced fracture of base of fourth metacarpal bone, left hand, initial encounter for closed fracture;Dyspnea;Chest pain, unspecified;Unspecified combined systolic (congestive) and diastolic (congestive) heart failure Presentation: 12/24 16:00 Coronavirus screen: Vaccine status: Patient reports receiving the 1st dose of the Covid jg9 vaccine. J\\T\\J. Ebola Screen: Patient negative for fever greater than or equal to 101.5 degrees Fahrenheit, and additional compatible Ebola Virus Disease symptoms Patient denies exposure to infectious person. Patient denies travel to an Ebola-affected area in the 21 days before illness onset. Initial Sepsis Screen: Does the patient meet any 2 criteria? No. Patient's initial sepsis screen is negative. Does the patient have a suspected source of infection? No. Patient's initial sepsis screen is negative. Onset of symptoms was December 24, 2021. 16:00 Care prior to arrival: None. jg9 16:05 Chief complaint: Patient states: Patient tripped fell and hit his head, no loc, on jg9 blood thinners. Mechanism of Injury: Fall from standing position. Trauma event details: Injury occurred at: 15:00. 16:05 Acuity: ALLAN 3 jg9 16:05 Method Of Arrival: Wheelchair jg9 17:22 Risk Assessment: Do you want to hurt yourself or someone else? Patient reports no jg9 desire to harm self or others. Trauma Activation: Not Applicable Physician: ED Physician; Name: ; Notified At: ; Arrived At: Physician: General Surgeon; Name: ; Notified At: ; Arrived At: Physician: Radiology; Name: ; Notified At: ; Arrived At: Physician: Respiratory; Name: ; Notified At: ; Arrived At: Physician: Lab; Name: ; Notified At: ; Arrived At: Historical: - Allergies: 17:23 PENICILLINS; jg9 17:23 IV contrast dye; jg9 - PMHx: 17:27 Coronary atherosclerosis; Hypertensive disorder; jg9 - PSHx: 17:27 Coronary Angioplasty; Cholecystectomy; umbilical hernia repair; jg9 - Immunization history:: Adult Immunizations up to date. - Family history:: not pertinent. - Social history:: Smoking status: Patient/guardian denies using tobacco, the patient reports quitting approximately 25 years ago. Screenin:21 Abuse screen: Denies threats or abuse. Denies injuries from another. Nutritional jg9 screening: No deficits noted. Tuberculosis screening: No symptoms or risk factors identified. Fall Risk Fall in past 12 months (25 points). Primary Survey: 16:00 NO uncontrolled hemorrhage observed. A: The patient is alert. Airway: patent. jg9 Breathing/Chest: Respiratory pattern: regular, Respiratory effort: spontaneous, unlabored. Circulation: Cardiac rhythm: sinus rhythm. Disability Alert. Exposure/Environment: All clothing and personal items were removed. Obvious injury(ies) are noted at this time: left eye laceration, left facial laceration near zygomatic arch. 17:21 Reassessment Airway Airway Patent Breathing/Chest Respiratory pattern Regular jg9 Respiratory effort Spontaneous Unlabored Circulation Heart rhythm Sinus rhythm Disability Alert. Secondary Survey: 16:15 HEENT: Face Other laceration to left cheek, left eye. Gastrointestinal: No deficits jg9 noted. : No deficits noted. Musculoskeletal: Reports pain in left hand-left wrisst swelling. Assessment: 16:05 General: Appears in no apparent distress. Behavior is calm, cooperative. Pain: jg9 Complains of pain in face and left hand-left eye. mormon, head. 17:42 Reassessment: Patient appears in no apparent distress at this time. Patient and/or ph family updated on plan of care and expected duration. Pain level reassessed. Patient is alert, oriented x 3, equal unlabored respirations, skin warm/dry/pink. Pt c/o "angina", requesting to take home nitro spray, ERP notified, EKG ordered. Vital Signs: 16:00 BP 184 / 80; Pulse 58; Resp 20 S; Temp 98.8; Pulse Ox 100% on R/A; Weight 70.31 kg (R); jg9 Height 5 ft. 10 in. (177.80 cm) (R); 17:15 BP 183 / 78; Pulse 66; Resp 17 S; Pulse Ox 100% on R/A; jg9 17:43 BP 192 / 80; Pulse 68; Resp 18; Pulse Ox 98% on R/A; ph 18:30 BP 172 / 86; Pulse 69; Resp 15 S; Pulse Ox 98% on R/A; jg9 23:00 BP 197 / 84; Pulse 68; Resp 17; Pulse Ox 100% on R/A; Pain 7/10; kd3 16:00 Body Mass Index 22.24 (70.31 kg, 177.80 cm) jg9 [place] Coma Score: 16:00 Eye Response: spontaneous(4). Verbal Response: oriented(5). Motor Response: obeys jg9 commands(6). Total: 15. Trauma Score (Adult): 16:00 Eye Response: spontaneous(1); Verbal Response: oriented(1); Motor Response: obeys jg9 commands(2); Systolic BP: > 89 mm Hg(4); Respiratory Rate: 10 to 29 per min(4); [place] Score: 15; Trauma Score: 12 ED Course: 15:47 Patient arrived in ED. as 15:58 Dario Rodarte MD is Attending Physician. [place] 16:10 Patient maintains SpO2 saturation greater than 95% on room air. Thermoregulation: warm jg9 blanket given to patient. 16:15 Inserted saline lock: 20 gauge in right antecubital area, using aseptic technique. jg9 16:31 Dorinda Cooper, BETTY is Primary Nurse. jg9 16:59 CT Traumagram (Head C Spine CAP wo con) In Process Unspecified. EDMS 17:02 Hand Left 3 View XRAY In Process Unspecified. EDMS 17:02 Shoulder Left (2 View) XRAY In Process Unspecified. EDMS 17:16 Triage completed. jg9 17:21 Arm band placed on left wrist. jg9 17:28 Patient has correct armband on for positive identification. Bed in low position. Call jg9 light in reach. 17:30 Wound care: to laceration located on face-left cheek, left eye was Cayden at bedside jg9 suturing patient. 17:46 Lio Vega is Hospitalizing Provider. [facility] 18:13 XRAY Chest (1 view) In Process Unspecified. EDMS 18:34 No apparent distress. Pt visited by . jg9 22:51 No provider procedures requiring assistance completed. Patient admitted, IV remains in kd3 place. Administered Medications: 18:45 Discontinued: NS 0.9% 500 ml IV at bolus once [facility] 17:14 Drug: Lidocaine-Epinephrine -1%: (1:100,000) 10 ml Volume: 20 ml; Route: Infiltration; j9 18:32 Follow up: Response: No adverse reaction j9 22:56 Follow up: Response: No adverse reaction kd3 18:10 Drug: NS 0.9% 500 ml Route: IV; Rate: bolus; Site: right antecubital; j9 22:57 Follow up: Response: No adverse reaction kd3 18:10 Drug: Nitro-Bid (nitroglycerin) Ointment 2 % 1 inches Route: Transdermal; Site: jg9 anterior chest wall; 18:15 Follow up: Response: No adverse reaction; Pain is decreased j9 22:56 Follow up: Response: No adverse reaction [facility] 18:14 Not Given (Patient Refused): Aspirin Chewable Tablet 81 mg PO once j9 18:15 Drug: Ancef (cefazolin) 1 grams Route: IVPB; Site: right antecubital; j9 18:32 Follow up: Response: No adverse reaction; IV Status: Completed infusion j9 22:56 Follow up: Response: No adverse reaction kd3 18:15 Drug: Lasix (furosemide) 20 mg Route: IVP; Site: right antecubital; jg9 18:33 Follow up: Response: No adverse reaction j9 22:55 Follow up: Response: No adverse reaction kd3 18:20 Drug: Tetanus-Diphtheria Toxoid Adult 0.5 ml {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 Exp: jg9 03/04/2023. Lot #: [id number]. } Route: IM; Site: left deltoid; 18:32 Follow up: Response: No adverse reaction j9 22:57 Follow up: Response: No adverse reaction kd3 18:33 Drug: [place] (HYDROcodone-acetaminophen) 10 mg-325 mg 1 tabs Route: PO; jg9 18:48 Follow up: Response: No adverse reaction jg9 22:55 Follow up: Response: Pain is decreased kd3 23:36 Follow up: Response: Pain is decreased kd3 Outcome: 17:52 Decision to Hospitalize by Provider. [place]annah 22:52 Admitted to Med/surg room 409, Report called to attempted to call report to betty farris kd3 22:52 Condition: stable 23:28 Admitted to Med/surg Report called to kaleigh hernández kd3 23:35 Patient left the ED. kd3 Signatures: Dispatcher [employer] EDMS Dario Rodarte MD MD cha Martinez, Amelia as Hall, Patricia RN Jahaira Gonzalez ph D, RN RN kd3 Dorinda Cooper RN RN jg9
[2021-12-24] MEDS ORDERED: ASPIRIN 81 MG CHEWABLE TABLET ONE (18:02)
[2021-12-24] MEDS ORDERED: FUROSEMIDE 20 MG/ 2ML VIAL ONE (18:02)
[2021-12-24] MEDS ORDERED: NITROGLYCERIN 1 GM PKT TD ONE (18:02)
--- NOTE | 2021-12-24 18:20 | RAD REPORT ---
EXAM DESCRIPTION: RAD - Chest Single View - 12/24/2021 6:14 pm CLINICAL HISTORY: CHEST PAIN Chest pain. COMPARISON: Head C Spine Cap Wo Con dated 12/24/2021 FINDINGS: Portable technique limits examination quality. Mild pulmonary edema suspected. The heart is moderately enlarged. No displaced fractures.Sternotomy w ires present. IMPRESSION: Mild CHF.
[2021-12-24 18:28] LABS: Albumin 3.3 g/dL (3.4-5.0); Bilirubin Direct 0.2 mg/dL (0-0.2); Bilirubin Total 0.5 mg/dL (0.2-1.0); Protein, Total 6.5 g/dL (6.4-8.2); Troponin High Sensitivity 7.6 pg/mL (<58.9)
[2021-12-24 18:29] LABS: Protime INR 1.21
[2021-12-24] MEDS ORDERED: HYDROCODONE/APAP 10/325 TAB ONE (18:30)
--- NOTE | 2021-12-24 19:19 | P.HP ---
Certification for Inpatient Patient admitted to: Observation With expected LOS: <2 Midnights Patient will require the following post-hospital care: None Practitioner: I am a practitioner with admitting privileges, knowledge of patient current condition, hospital course, and medical plan of care. Services: Services provided to patient in accordance with Admission requirements found in Title 42 Section 412.3 of the Code of Federal Regulations Patient History Date of Service: 12/24/21 Primary Care Provider: Dr. Arrington Reason for admission: Chest Pain, Fall, Hand Fx History of Present Illness: Patient is a 81-year-old male with CAD and hypertension who presented to the ED after a fall. Patient states he was walking in a parking lot and tripped over a parking block. He he hit his head but denies loss of consciousness. He does take Plavix on a daily basis. Patient was also complaining of left hand pain. In the ED CT trauma gram was negative. Left hand x-ray showed a fracture at the base of the fourth and fifth metacarpal and an oblique fracture of the distal fourth metacarpal. Ulnar gutter splint was placed. Patient also had a laceration on his left temporal region that was cleaned and sutured. Patient later in the ED started complaining of some chest pain. His chest x-ray showed mild CHF, EKG x2 negative for ST changes, troponin also negative. Patient's refractory repairer is Dr. Majano in [place]. He does have a history of CAD with coronary angioplasty. He typically uses nitroglycerin spray for relief. He was given nitroglycerin paste in the ED which resolved his chest pain. Other labs in the ED were unremarkable. ED provider wishes to admit patient for observation. Home medications list reviewed: No (not inputted ) - Past Medical/Surgical History Diabetic: No -: CAD -: HTN -: Coronary Angioplasty -: Cholecystectomy -: Umbilical Hernia Repair Psychosocial/ Personal History: Patient lives at home with his . - Social History Smoking Status: Former smoker Alcohol use: Yes CD- Drugs: No Caffeine use: Yes Place of Residence: Home Review of Systems Cardiovascular: Chest Pain Musculoskeletal: Shoulder Pain, Hand Pain Integumentary: Bruising, As per HPI Physical Examination - Physical Exam General: Alert, In no apparent distress, Oriented x3 HEENT: PERRLA, Mucous membr. moist/pink, Other (bruising and laceration left temporal region ), EOMI, Sclerae nonicteric Neck: Supple, 2+ carotid pulse no bruit, No LAD, Without JVD or thyroid abnormality Respiratory: Clear to auscultation bilaterally, Normal air movement Cardiovascular: Regular rate/rhythm, Normal S1 S2 Gastrointestinal: Normal bowel sounds, No tenderness Musculoskeletal: Tenderness, Cast in place (left ulnar gutter splint ) Integumentary: No rashes Neurological: Normal speech, Normal strength at 5/5 x4 extr, Normal tone, Normal affect - Studies Laboratory Data (last 24 hrs) 12/24/21 16:20: PT 13.4 H, INR 1.21 12/24/21 16:20: Magnesium 2.0, Total Bilirubin 0.5, AST 19, ALT 19, Alkaline Phosphatase 64 12/24/21 16:20: WBC 5.00, Hgb 11.9 L, Hct 34.7 L, Plt Count 165 12/24/21 16:20: Sodium 140, Potassium 3.7, BUN 23 H, Creatinine 0.94, Glucose 103 Assessment and Plan - Problems (Diagnosis) (1) Chest pain due to CAD Current Visit: Yes Status: Acute (2) HTN (hypertension) Current Visit: Yes Status: Chronic Qualifiers: Hypertension type: primary hypertension Qualified Code(s): I10 - Essential (primary) hypertension (3) Fall Current Visit: Yes Status: Acute Qualifiers: Encounter type: initial encounter Qualified Code(s): W19.XXXA - Unspecified fall, initial encounter (4) Hand fracture, left Current Visit: Yes Status: Acute Qualifiers: Encounter type: initial encounter Fracture type: closed Qualified Code(s): S62.92XA - Unspecified fracture of left wrist and hand, initial encounter for closed fracture (5) Laceration of face without complication Current Visit: Yes Status: Acute Qualifiers: Encounter type: initial encounter Qualified Code(s): S01.81XA - Laceration without foreign body of other part of head, initial encounter - Plan -Patient is being admitted for chest pain ACS rule out. He was given nitroglycerin ointment in the ED which improved his chest pain. EKG x2 was negative. Troponin was not elevated. We will repeat x2 every 6 hours. -Patient does not report a history of CHF but CXR showed mild CHF. 20 mg of Lasix given in the ED. echo ordered. He does follow with cardiology in [place], cardiology consulted. -Patient refused aspirin in the ED. Have ordered aspirin and atorvastatin this evening. Patient does take Plavix on a daily basis. -Patient was hypertensive in the ED-ranging from 170s to 190s systolic. Patient does not recall what medications he takes for hypertension. However he states he cannot take metoprolol. Hydralazine ordered as needed until home medications are documented. -Patient did fall this afternoon and is on Plavix however CT head was negative in the ED. Patient denies loss of consciousness. Patient denies any confusion, headache, weakness. -Patient's hand fracture is stable at this time. He received Ancef and Tdap in the ED. he had a laceration repair on his face and left hand. We will continue [place] as needed pain. -physical therapy consulted for ambulation with assistance DVT PPx: Lovenox Code: Full Discharge Plan: Home Plan to discharge in: 24 Hours - Advance Directives Does patient have a Living Will: No Does patient have a Durable POA for Healthcare: No - Code Status/Comfort Care Code Status Assessed: Yes (Full) Critical Care: No Time Spent Managing Pts Care (In Minutes): 70
[2021-12-24 22:31] VITALS: BMI 22.1
[2021-12-24] MEDS ORDERED: ONDANSETRON 4 MG/2 ML VIAL IV PRN (22:32)
[2021-12-24] MEDS ORDERED: ASPIRIN 81 MG CHEWABLE TABLET PO ONE (22:32)
[2021-12-24] MEDS ORDERED: HYDRALAZINE HCL 10 MG TABLET PO PRN (22:32)
[2021-12-24] MEDS ORDERED: ATORVASTATIN 40 MG TAB PO SCH (22:32)
[2021-12-24] MEDS: HYDROCODONE/APAP 7.5/325 MG TAB PO PRN (22:42)
[2021-12-25 01:44] LABS: Urine Appearance CLEAR (Clear); Urine Bilirubin NEGATIVE (Negative); Urine Blood NEGATIVE (Negative); Urine Color YELLOW (Yellow); Urine Glucose NEGATIVE (Negative); Urine Protein NEGATIVE (Negative); Urine pH 7.5 (5.0-7.0)
[2021-12-25 01:49] LABS: Urine Microscopic Reflex NO UMIC
[2021-12-25] MEDS ORDERED: clonazePAM 0.5 MG TAB PO SCH (03:30)
[2021-12-25 06:28] LABS: Bilirubin Total 0.4 mg/dL (0.2-1.0); Potassium 3.3 mmol/L (3.5-5.1); Protein, Total 6.1 g/dL (6.4-8.2); Thyroid Stimulating Hormone 3.48 uIU/mL (0.360-3.740)
[2021-12-25] MEDS ORDERED: CLOPIDOGREL 75 MG TABLET PO SCH (09:00)
[2021-12-25] MEDS ORDERED: ENOXAPARIN 40 MG/0.4 ML SQ SCH (09:00)
[2021-12-25] MEDS ORDERED: ISOSORBIDE MONO SR 30 MG TAB PO SCH (09:00)
[2021-12-25] MEDS ORDERED: FENOFIBRATE 160 MG TAB PO SCH (09:00)
--- NOTE | 2021-12-25 10:10 | EKG ---
Test Date: 2021-12-24 Test Time: 17:41:15 Hose Operator: BONITA MEASUREMENT RESULTS: Intervals: Rate: 69 IA: QRSD: 114 QT: 418 QTc: 447 [place]: P: IA: QRS: 38 T: 25 INTERPRETIVE STATEMENTS: normal sinus rhythm normal ECG Electronically Signed On 12-25-21 10:10:04 CDT by Edmund Felipe
--- NOTE | 2021-12-25 10:11 | EKG ---
Test Date: 2021-12-24 Test Time: 16:42:11 Political Science Instructor: CLINT MEASUREMENT RESULTS: Intervals: Rate: 57 NH: QRSD: 112 QT: 438 QTc: 426 [place]: P: NH: QRS: 30 T: 19 INTERPRETIVE STATEMENTS: normal sinus rhythm Minimal voltage criteria for LVH, may be normal variant normal ECG Electronically Signed On 12-25-21 10:10:47 CDT by Edmund Felipe
[2021-12-25] MEDS: HYDROCODONE/APAP 7.5/325 MG TAB PO PRN (10:23)
--- NOTE | 2021-12-25 12:58 | CON ---
Date of Consultation: 12/25/2021 Reason For Consultation: Chest pain following a fall. History Of Present Illness: Mr. Mullen is an 81[address] Hermann Majano in [place]. He has re cently had negative stress test. Comes in with a fall. He tripped, hurt his face, broke his arm. F ollowing that, he had some mild chest pain in the center of his chest without any nausea, vomiting, d iaphoresis, PND, orthopnea, pedal edema, palpitations, or syncope. His symptoms lasted about 10 ramy richard. Mr. Mullen has had a history of CABG before and has had multiple stents and according to him, his grafts are open according to the last catheterization. He sees Dr. Arrington in [place] for his primary care. He is asymptomatic now. Past Medical History: Includes CAD status post CABG, hypertension, hypertriglyceridemia, BPH and gas troesophageal reflux disease. Allergies: HE IS ALLERGIC TO IODINE AND PENICILLIN. Review of Systems: Negative. Social History: Negative. Family History: Negative. Medications: At home include Plavix, Tricor, Lasix, Ranexa, Imdur, Flomax, and Protonix. Physical Examination: General: He looks like in no acute distress. There was obvious hematoma over the left thigh and lef t forehead and left ear without any significant edema. Neck: Supple without any lymphadenopathy, JVD, thyromegaly, or bruit. Chest: Clear. Cardiac: Revealed regular rhythm and rate. No murmurs, gallops, or rubs. Abdomen: Benign. Extremities: Revealed no clubbing, cyanosis, or edema. Laboratory Data: Chest x-ray showed mild CHF. Otherwise, his troponin and BNPs are negative. Impression And Plan: 1.Stable angina. 2.Status post fall and he broke his left arm. He needs to see an arm surgeon. That is being arrang ed by Dr. Vega and staff. 3.History of coronary artery disease, status post coronary artery bypass graft and stent with recent negative stress test by Dr. Majano. 4.Hypertension, well controlled. 5.Hypertriglyceridemia, well controlled. 6.Benign prostatic hypertrophy. 7.Gastroesophageal reflux disease. pain was mild and short lasting and he has ruled out. I am comfortable with him going home and following up with Dr. Majano in the near future. His chest x-ray showed mild congestive heart failure, but clinically speaking, he is not in congestive heart f ailure episode by examination. He does not have any rales. Again, as stated earlier, arrange for [facility] appointment. No change in medical therapy hold today and he will see Dr. Majano in the n ear future. The case was discussed further with Dr. Vega. SHALINI/ROSEANNE Voice ID: [id number] Report ID: [id number]
--- NOTE | 2021-12-25 14:00 | P.DS ---
Admission Date: 12/24/21 Discharge Date: 12/25/21 Primary Care Provider: Dr. Arrington Disposition: ROUTINE DISCHARGE Discharge Condition: FAIR Reason for Admission: Chest Pain, Fall, Hand Fx Consultations: Cardiology-Dr. Felipe - Problems (1) Chest pain Current Visit: Yes Status: Acute (2) Fall Current Visit: Yes Status: Acute Qualifiers: Encounter type: initial encounter Qualified Code(s): W19.XXXA - Unspecified fall, initial encounter (3) Hand fracture, left Current Visit: Yes Status: Acute Qualifiers: Encounter type: initial encounter Fracture type: closed Qualified Code(s): S62.92XA - Unspecified fracture of left wrist and hand, initial encounter for closed fracture (4) Laceration of face without complication Current Visit: Yes Status: Acute Qualifiers: Encounter type: initial encounter Qualified Code(s): S01.81XA - Laceration without foreign body of other part of head, initial encounter (5) HTN (hypertension) Current Visit: Yes Status: Chronic Qualifiers: Hypertension type: primary hypertension Qualified Code(s): I10 - Essential (primary) hypertension Brief History of Present Illness: Patient is a 81-year-old male with CAD and hypertension who presented to the ED after a fall. Patient states he was walking in a parking lot and tripped over a parking block. He he hit his head but denies loss of consciousness. He does take Plavix on a daily basis. Patient was also complaining of left hand pain. In the ED CT trauma gram was negative. Left hand x-ray showed a fracture at the base of the fourth and fifth metacarpal and an oblique fracture of the distal fourth metacarpal. Ulnar gutter splint was placed. Patient also had a laceration on his left temporal region that was cleaned and sutured. Patient later in the ED started complaining of some chest pain. His chest x-ray showed mild CHF, EKG x2 negative for ST changes, troponin also negative. Patient's press assistant is Dr. Majano in [place]. He does have a history of CAD with coronary angioplasty. He typically uses nitroglycerin spray for relief. He was given nitroglycerin paste in the ED which resolved his chest pain. Other labs in the ED were unremarkable. Patient hospitalized for further management. Hospital Course: Patient's left hand fracture splinted in the ED. He was placed on the observation on the medical floor. Troponin trended negative. ACS ruled out Patient seen and evaluated by cardiology-Dr. Felipe cleared patient for discharge. No changes in discharge medication per cardiology. Patient had no more chest pain during the hospital stay. His pain was managed with [place]. Patient is prescribed a few days of [place] for acute pain. Vital Signs/Physical Exam: Temp Pulse Resp BP Pulse Ox 97.5 F 54 18 140/69 94 12/25/21 08:00 12/25/21 08:00 12/25/21 10:23 12/25/21 08:00 12/25/21 10:23 General: Alert, In no apparent distress, Oriented x3 HEENT: Mucous membr. moist/pink, Other (Sutured left forehead laceration.) Neck: Supple, JVD not distended Respiratory: Clear to auscultation bilaterally, Normal air movement Cardiovascular: No edema, Regular rate/rhythm, Normal S1 S2 Gastrointestinal: Normal bowel sounds, Soft and benign, Non-distended, No tenderness Musculoskeletal: No swelling Neurological: Normal strength at 5/5 x4 extr Laboratory Data at Discharge: WBC 5.00 K/uL (4.3-10.9) 12/24/21 16:20 Hgb 11.9 g/dL (13.6-17.9) L 12/24/21 16:20 Hct 34.7 % (39.6-49.0) L 12/24/21 16:20 Plt Count 165 K/uL (152-406) 12/24/21 16:20 PT 13.4 SECONDS (9.5-12.5) H 12/24/21 16:20 INR 1.21 12/24/21 16:20 Sodium 139 mmol/L (136-145) 12/25/21 05:34 Potassium 3.3 mmol/L (3.5-5.1) L 12/25/21 05:34 BUN 23 mg/dL (7-18) H 12/25/21 05:34 Creatinine 0.92 mg/dL (0.55-1.3) 12/25/21 05:34 Glucose 104 mg/dL (74-106) 12/25/21 05:34 Magnesium 2.0 mg/dL (1.8-2.4) 12/24/21 16:20 Total Bilirubin 0.4 mg/dL (0.2-1.0) 12/25/21 05:34 AST 12 U/L (15-37) L 12/25/21 05:34 ALT 17 U/L (12-78) 12/25/21 05:34 Alkaline Phosphatase 62 U/L (45-117) 12/25/21 05:34 Triglycerides 71 mg/dL (<150) 12/25/21 05:34 Cholesterol 111 mg/dL (<200) 12/25/21 05:34 HDL Cholesterol 31 mg/dL (40-60) L 12/25/21 05:34 Cholesterol/HDL Ratio 3.58 12/25/21 05:34 Home Medications: Cholecalciferol (Vitamin D3) [Vitamin D3] 1,000 unit PO DAILY 12/25/21 Clopidogrel Bisulfate [Plavix] 75 mg PO DAILY 12/25/21 Fenofibrate [Tricor*] 145 mg PO DAILY 12/25/21 Finasteride 5 mg PO BEDTIME 12/25/21 Furosemide 40 mg PO SEECOM 12/25/21 Hydrocodone 5/APAP 325 [[place] 5/325] 1 tab PO Q6H PRN #20 tab 12/25/21 Isosorbide Mononitrate [Isosorbide Mononitrate ER] 30 mg PO DAILY 12/25/21 Isosorbide Mononitrate [Isosorbide Mononitrate ER] 60 mg PO BEDTIME 12/25/21 Magnesium Oxide [Magnesium] 500 mg PO DAILY 12/25/21 Minocycline HCl 100 mg PO DAILY 12/25/21 Multivitamin 1 each PO DAILY 12/25/21 [place]-3 Fatty Acids [[place]-3] 1,000 mg PO DAILY 12/25/21 Pantoprazole [Protonix Tab*] 40 mg PO BEDTIME 12/25/21 Ranolazine [Ranexa] 500 mg PO BID 12/25/21 Tamsulosin HCl 0.4 mg PO BEDTIME 12/25/21 Zinc 50 mg PO DAILY 12/25/21 clonazePAM [Clonazepam] 0.5 tab PO BEDTIME 12/25/21 New Medications: Hydrocodone 5/APAP 325 [[place] 5/325] 1 tab PO Q6H PRN #20 tab PRN Reason: Pain Diet: AHA Activity: Ad madelin Followup: Unknown,U [Primary Care Provider] -
[2021-12-25 14:17] VITALS: BP 126/64; TEMP 97.4; O2SAT 97
[2021-12-25] MEDS ORDERED: TAMSULOSIN 0.4 MG SR CAP PO SCH (21:00)
[2021-12-25] MEDS ORDERED: ISOSORBIDE MONO SR 60 MG TAB PO SCH (21:00)
[2021-12-25] MEDS ORDERED: FINASTERIDE 5 MG TAB PO SCH (21:00)
[2021-12-25] MEDS ORDERED: PANTOPRAZOLE 40MG TABLET PO SCH (21:00)
[2021-12-26] MEDS ORDERED: FUROSEMIDE 40 MG TABLET PO SCH (09:00)
== END 2021-12-25 15:00 | disposition home or self-care (01) ==
LOC: ER 15:46 → ERHOLD 19:04 → 4TH 23:19
PROVIDERS: ADMIT Internal Medicine; ATTEND Internal Medicine
PROC: 0JQ10ZZ Repair Face Subcutaneous Tissue and Fascia, Open Approach (ICD-10-PCS; principal; 2021-12-24)
PROC: 0JQK0ZZ Repair Left Hand Subcutaneous Tissue and Fascia, Open Approach (ICD-10-PCS; 2021-12-24)
PROC: 2W3DX1Z Immobilization of Left Lower Arm using Splint (ICD-10-PCS; 2021-12-24)
DX: I25.119 Atherosclerotic heart disease of native coronary artery with unspecified angina pectoris (principal); S62.315A Displaced fracture of base of fourth metacarpal bone, left hand, initial encounter for closed fracture; S62.317A Displaced fracture of base of fifth metacarpal bone, left hand, initial encounter for closed fracture; S62.395A Other fracture of fourth metacarpal bone, left hand, initial encounter for closed fracture; S01.81XA Laceration without foreign body of other part of head, initial encounter; S61.412A Laceration without foreign body of left hand, initial encounter; W01.10XA Fall on same level from slipping, tripping and stumbling with subsequent striking against unspecified object, initial encounter; M25.512 Pain in left shoulder; R06.00 Dyspnea, unspecified; I10 Essential (primary) hypertension; E78.1 Pure hyperglyceridemia; N40.0 Benign prostatic hyperplasia without lower urinary tract symptoms; K21.9 Gastro-esophageal reflux disease without esophagitis; Z23 Encounter for immunization; Z20.822 Contact with and (suspected) exposure to COVID-19; Z79.02 Long term (current) use of antithrombotics/antiplatelets; Z79.899 Other long term (current) drug therapy; Z88.0 Allergy status to penicillin; Z91.041 Radiographic dye allergy status; Z95.1 Presence of aortocoronary bypass graft; Z95.5 Presence of coronary angioplasty implant and graft; Z90.49 Acquired absence of other specified parts of digestive tract; Z87.891 Personal history of nicotine dependence
CPT/HCPCS: 93005 ×2; 85025; 80048; 36415; 86900; 83735; 86850; 85610; 80061; 86901; 80076; 84443; 81003; 84484 ×3; 84439; 80053; 83880; 70450; 71250; 72125; 71045; 73130; 73030; 90714; 97161; 94010; 12011; 12001; 29126; U0003; J1940; J1650; J7040; J0690; 90471; 96365; 96375; 99285